=== PATIENT | female | born 1965 | race Caucasian/White ===

== ENCOUNTER → 2017-09-25 14:24 | Outpatient (CLI) | payer OTHER, SELFPAY ==
--- NOTE | 2017-09-25 14:27 | BI_ITS ---
MAMMOGRAPHY - BILATERAL SCREENING REASON FOR EXAM: Female, 52 years old. Routine annual screening examination. PERTINENT HISTORY: FAM HX MOTHER AGE 62, 3 MAT AUNTS AGES ?? NO SX TECHNIQUE: Digital bilateral breast leonor (3D mammographic acquisition) in the CC and MLO projections. 2-D mediolateral oblique (MLO) and craniocaudad (CC) views of both breasts were obtained. CAD: Full Field Digital Mammography with Computer Added Detection was performed. COMPARISON: Sep 19 2016 3:07pm. Sep 09 2015 1:58pm FINDINGS: Breast Composition: The breasts are extremely dense, which lowers the sensitivity of mammography. There are no dominant masses or suspicious calcifications. No other significant abnormalities are identified. BI/SCREENING MAMM (CAD), BILAT IMPRESSION: Stable bilateral screening mammogram. Yearly follow-up mammogram recommended. (A) ASSESSMENT CATEGORY: BIRADS Category 2: Benign. A letter regarding these results will be sent to the patient by the facility within 30 days. Approximately 10% of breast cancers are not detected by mammography. A normal mammogram should not delay biopsy of a clinically suspicious abnormality. [id number] Electronically Signed: Ora Allen MD at 15:46 EDT Tel , Service support ,
== END ==
PROVIDERS: Family Provider Family Medicine; PCP Family Medicine; Visit Provider Family Medicine
DX: Z12.31 Encounter for screening mammogram for malignant neoplasm of breast (principal)
CPT/HCPCS: 77063; 77067

== ENCOUNTER 2018-03-26 11:34 | Day surgery (SDC) | payer OTHER, SELFPAY ==
--- NOTE | 2018-03-26 11:55 | HP.PCM_ITS ---
History and Physical Date of Admission: 03/26/18 HISTORY AND PHYSICAL ? Ginetet Morton 1965 ? REFERRING PHYSICIAN: ??Self ? CHIEF COMPLAINT: ??Consult (Consult Colonoscopy) ? HPI: The patient is a 52 year old female referred for endoscopy. ?Ginette notes no history of colon complaints. ?She denies any change in bowel habits, weight changes, blood in stools, black tarry stools or abdominal pain. ?She denies any family history of colon cancer in a first-degree relative. The patient ?notes no history of upper GI complaints. ??Ginette has partially?undergone prior endoscopy. ? ? Patient's past medical history is significant for migraines. ?She denies any cardiac or respiratory problems, and denies any issues with sedation in the past. ? ? PAST MEDICAL HISTORY PAST MEDICAL HISTORY Diagnosis Date ? Migraines ? PAST SURGICAL HISTORY PAST SURGICAL HISTORY Procedure Laterality Date ? HYSTERECTOMY HX ? 2013 ? with Rt oophorectomy ? ? ? CURRENT MEDICATIONS ? No current outpatient prescriptions on file. No current facility-administered medications for this visit. ? ALLERGIES: Patient has no known allergies. ? PERSONAL HISTORY: SOCIAL HISTORY Social History ??Marital status: ?Spouse name: ?Years of education: ?Number of children: ? Social History Main Topics ??Smoking status: Never Smoker ?Smokeless tobacco: Never Used ?Alcohol use: Yes ?Comment: 1/ year ??Drug use: No ? FAMILY HISTORY: FAMILY HISTORY FAMILY HISTORY Problem Relation Age of Onset ? Breast Cancer Mother ? ? Hypertension Mother ? ? Cancer Maternal Grandmother ?pancreatic vs colon ca ? Coronary Artery Disease Maternal Grandfather ? ? Prostate Cancer Paternal Grandfather ? ? Breast Cancer Maternal Aunt ?x3 ? ? REVIEW OF SYMPTOMS: ??The review of systems data was entered by the nurse and reviewed by me ? There are no exam notes on file for this visit. ? ? PHYSICAL EXAMINATION: ? General: ?The patient is 52 year old female, well nourished, well hydrated in no acute distress. ?The patient is oriented to time, place, and person. ? VITALS: Blood pressure 132/72, pulse 68, height 162.6 cm (5' 4), weight 62.2 kg (137 lb 3.2 oz).?Body mass index is 23.55 kg/m?.? ? HEENT: ?Normal cephalic, ataumatic, pupils are equally round, sclera are anicteric, mucous membranes are moist, oropharynx is clear. ?Neck has no masses, asymmetry or lymphadenopathy. ? ? Respiratory: ?Clear to auscultation and percussion. ?Normal respiratory excursion and pattern. ? Cardiac: ?Examination is regular rate and rhythm. ? Abdominal exam: ?Soft, nontender, ?with no palpable masses. ?No hepatosplenomegaly. ?No palpable hernias. ? Rectal exam: exam deferred ? Extremities: ?no clubbing, cyanosis or edema. ?No adenopathy. ? Other: ? LABORATORY VALUES: As Noted ? RADIOLOGIC STUDIES: ?As Noted ? Assessment ? IMPRESSION: encounter for screening colonoscopy ? PLAN: ?We will plan for screening colonoscopy, patient wishes to have this done at [facility] as she works there and has [facility] insurance. ?We discussed the risks and benefits of the planned endoscopy. ?I have informed the patient that complications can occur including failure to complete the endoscopy and perforation. ?The patient had the opportunity to ask questions concerning the planned endoscopy. ?My staff has also explained the procedure to the patient in understandable terms and has given the patient printed material concerning the procedure. ?The patient freely consents to surgery. ? I plan to use golytely bowel preparation for endoscopy ? Diagnoses: (Z12.11) Encounter for screening for malignant neoplasm of colon ?(primary encounter diagnosis) ? My findings have been communicated to Dr. Meek?via shared medical record. ?This note will be forwarded to Dr. Bhavik Pineda MD. ?? Return to Clinic: The patient is instructed to follow-up with me 1 week post operatively. ? Cristal Barlow PA-C
[2018-03-26 12:10] VITALS: BP 124/75; PULSE 76; RESP 16; TEMP 37.3; O2SAT 100; BMI 23.3
--- NOTE | 2018-03-26 12:53 | OP.ENDO_ITS ---
Patient Name: Ginette Morton Procedure Date: 03/26/2018 12:21 PM Date of : 1965 Age: 52 Procedure: Colonoscopy Indications: Screening for colorectal malignant neoplasm Providers: Edmund Munroe MD Referring MD: Edmund Munroe MD Medicines: Monitored Anesthesia Care Patient Profile: This is a 52 year old female. Refer to note in patient chart for documentation of history and physical. Last Colonoscopy: none. The patient's first colonoscopy is today. Complications: No immediate complications. Procedure: Pre-Anesthesia Assessment: - Prior to the procedure, a History and Physical was performed, and patient medications and allergies were reviewed. The patient is competent. The risks and benefits of the procedure and the sedation options and risks were discussed with the patient. All questions were answered and informed consent was obtained. Patient identification and proposed procedure were verified by the physician, the nurse and the him specialist in the procedure room. Mental Status Examination: alert and oriented. Airway Examination: normal oropharyngeal airway and neck mobility. Respiratory Examination: clear to auscultation. CV Examination: normal. Prophylactic Antibiotics: The patient does not require prophylactic antibiotics. Prior Anticoagulants: The patient has taken no previous anticoagulant or antiplatelet agents. ASA Grade Assessment: II - A patient with mild systemic disease. After reviewing the risks and benefits, the patient was deemed in satisfactory condition to undergo the procedure. The anesthesia plan was to use monitored anesthesia care (MAC). Immediately prior to administration of medications, the patient was re-assessed for adequacy to receive sedatives. The heart rate, respiratory rate, oxygen saturations, blood pressure, adequacy of pulmonary ventilation, and response to care were monitored throughout the procedure. The physical status of the patient was re-assessed after the procedure. After I obtained informed consent, the scope was passed under direct vision. Throughout the procedure, the patient's blood pressure, pulse, and oxygen saturations were monitored continuously. The pediatric colonoscope was introduced through the anus and advanced to the cecum, identified by the appendiceal orifice, ileocecal valve and palpation. The colonoscopy was performed without difficulty. The patient tolerated the procedure well. The quality of the bowel preparation was good. Scope In: 12:38:11 PM Scope Withdrawal Time 0 hours 6 minutes 10 seconds Scope Out: 12:49:57 PM Total Procedure Duration Time 0 hours 11 minutes 46 seconds Findings: The perianal and digital rectal examinations were normal. The entire examined colon appeared normal on direct and retroflexion views. Impression: - The entire examined colon is normal on direct and retroflexion views. - No specimens collected. Recommendation: - Discharge patient to home. - Resume previous diet. - Continue present medications. - Repeat colonoscopy in 10 years for screening purposes. Edmund Munroe MD 03/26/2018 12:53:13 PM This report has been signed electronically. Number of Addenda: 0 Note Initiated On: 03/26/2018 12:21 PM
[2018-03-26 12:55] VITALS: BP 124/75; BP 95/53; PULSE 80; RESP 16; TEMP 36.6; O2SAT 97
[2018-03-26 13:00] VITALS: BP 100/60; BP 124/75; PULSE 71; RESP 16; O2SAT 100
[2018-03-26 13:01] VITALS: BP 107/61; BP 124/75; PULSE 73; RESP 16; O2SAT 100
[2018-03-26 13:11] VITALS: BP 111/65; BP 124/75; PULSE 68; RESP 18; TEMP 36.9; O2SAT 100
[2018-03-26 13:23] VITALS: BP 124/75
== END 2018-03-26 13:31 | disposition home or self-care (01) ==
LOC: EN 11:35 → AC 11:35
PROVIDERS: Family Provider Family Medicine; PCP Family Medicine; Referring Provider Surgery; Visit Provider Surgery
PROC: 0DJD8ZZ Inspection of Lower Intestinal Tract, Via Natural or Artificial Opening Endoscopic (ICD-10-PCS; CPT 45378; principal; 2018-03-26 12:25)
DX: Z12.11 Encounter for screening for malignant neoplasm of colon (principal)
CPT/HCPCS: 45378; J7120

== ENCOUNTER → 2018-06-13 14:23 | Outpatient (CLI) | payer OTHER, SELFPAY ==
[2018-06-16 11:14] LABS: HPV Reflexed? NOT INDICATED
--- OUTSIDE RECORDS SUMMARY | 2018-08-18 11:48 | XMS RPT_ITS ---
:1965 Author Organization [facility] Care Team Providers Name Role Phone LEO BARLOW (CARMELITA) Attending Unavailable Emilie Fagan Attending Unavailable Oriana Savage Attending Unavailable Hussein Oriana Referring Unavailable Hussein Oriana Primary Care Unavailable ASSESSMENT, HEALTH RISK Attending Unavailable ASSESSMENT, HEALTH RISK Referring Unavailable Malys, Oriana Primary Care Unavailable Edmund Escobar Attending Unavailable Edmund Escobar Referring Unavailable Oriana Savage Primary Care Unavailable PROBLEMS PROBLEMS DATE TYPE CONDITION / CODE ATTENDING STATUS SOURCE 06/13/2018 Unknown Z12.4 - Emilie Fagan Active [place] Encounter for Community screening for Hospital malignant Repository neoplasm of cervix / Z12.4(ICD-10) 09/25/2017 Unknown Z12.31 - Oriana Savage Active [place] Encounter for Community screening Hospital mammogram for Repository malignant neoplasm of breast / Z12.31(ICD-10) PROCEDURES PROCEDURES No Procedure Records FoundRESULTS RESULTS PAP I-G W/RFX HRHPV Collected: 06/13/2018 Status: F Source: [place] 11:30 AM [facility] REPOSITORY Order Comment: CYTOLOGY INFORMATION: - CLINICAL INFORMATION: HYSTERECTOMY - DATE LMP/MENOPAUSE: - COLLECTION VIAL: Thin Prep Vial - ENVIRONMENTAL FIELD TEAM MEMBER SOURCE: VAGINAL - COLLECTION TECHNIQUE: BRUSH/SPATULA Specimen Comment: [id number] Specimen Comment: Source.............Vagina Specimen Comment: LMP / Prev Treat...Hyst Specimen Comment: No. of containers..01 ThinPrep Vial TYPE CODE TESTS RESULT OUT OF RANGE REFERENCE UNITS LAB L7400.0800 . Normal DIAGN Comment Result Comment: NEGATIVE FOR INTRAEPITHELIAL LESION OR MALIGNANCY. LAB L7400.0900 . Normal ADEQ Comment Result Comment: Satisfactory for evaluation. No endocervical cells are present. This is consistent with a history of hysterectomy. LAB L7400.1400 . Normal PERFORM Comment Result Comment: Tatianna Boss, Hospice Care Transitions Coordinator (ASCP) LAB L7400.2575 . Normal TEST METHOD Comment Result Comment: This liquid based ThinPrep(R) pap test was screened with the use of an image guided system. LAB L7400.2600 . Normal . COMM LAB L7400.2700 . Normal PAPSMR Comment Result Comment: The Pap smear is a screening test designed to aid in the detection of premalignant and malignant conditions of the uterine cervix. It is not a diagnostic procedure and should not be used as the sole means of detecting cervical cancer. Both false-positive and false-negative reports do occur. LAB L7400.2800 . Normal HPV RFLX Comment Result Comment: The HPV DNA reflex criteria were not met with this specimen result therefore, no HPV testing was performed. Performed at: [facility] [address]David douglas [address] [id number] Sanitation Inspector: Maria Eugenia Victor MD, Phone: [phone] Performed By: #### L7400.0350 #### [facility] (refer to report for specific site) refer to report for address and phone number PROGRESS Observed: 04/01/2018 Status: COMPLETED Source: [place] 12:51 PM [facility] REPOSITORY HNO ID: [id number] Author: Edmund Escobar Service: (none) Author Type: Physician Type: Progress Notes Filed: 04/01/2018 12:54 PM Note Text: OPERATIVE NOTATION FOR [facility] SURGICAL PROCEDURE. March 26, 2018 Ginette Morton 1965 [id number] female PROCEDURE: COLONOSCOPY - [id number] SURGEON: Anil Escobar M.D. FACS FINANCIAL RETIREMENT PLAN SPECIALIST: None DEPT: PROVIDER: [id number] Escobar MD POS: [id number] DIAGNOSIS: (Z12.11) Special screening for malignant neoplasms, colon (primary encounter diagnosis) ASA CLASS: 2 - mild FINDINGS: COMPLICATIONS: None PMHx - PAST MEDICAL HISTORY Diagnosis Date - Migraines COMORBIDITIES - None Post Op Occurrences - None Wound Classification - Clean Contaminated Operative note dictated in the [facility] dictation system. Edmund Escobar MD OPERATIVE REPORT - Observed: 03/26/2018 Status: F Source: [facility] 12:53 PM [facility] REPOSITORY [facility] Medical Records Department [address] [place] [address] Operative Report - Endoscopy MR#: [id number] Acct: [id number] Name: GINETTE MORTON Rep #: [id number] : 1965 52 From: Edmund Escobar MD PCP: Oriana Savage DO Status: [employer] Patient Name: Ginette Morton Procedure Date: 03/26/2018 12:21 PM Date of : 1965 Age: 52 Procedure: Colonoscopy Indications: Screening for colorectal malignant neoplasm Providers: Edmund Escobar MD Referring MD: Edmund Escobar MD Medicines: Monitored Anesthesia Care Patient Profile: This is a 52 year old female. Refer to note in patient chart for documentation of history and physical. Last Colonoscopy: none. The patient's first colonoscopy is today. Complications: No immediate complications. Procedure: Pre-Anesthesia Assessment: - Prior to the procedure, a History and Physical was performed, and patient medications and allergies were reviewed. The patient is competent. The risks and benefits of the procedure and the sedation options and risks were discussed with the patient. All questions were answered and informed consent was obtained. Patient identification and proposed procedure were verified by the physician, the nurse and the education administrative assistant in the procedure room. Mental Status Examination: alert and oriented. Airway Examination: normal oropharyngeal airway and neck mobility. Respiratory Examination: clear to auscultation. CV Examination: normal. Prophylactic Antibiotics: The patient does not require prophylactic antibiotics. Prior Anticoagulants: The patient has taken no previous anticoagulant or antiplatelet agents. ASA Grade Assessment: II - A patient with mild systemic disease. After reviewing the risks and benefits, the patient was deemed in satisfactory condition to undergo the procedure. The anesthesia plan was to use monitored anesthesia care (MAC). Immediately prior to administration of medications, the patient was re-assessed for adequacy to receive sedatives. The heart rate, respiratory rate, oxygen saturations, blood pressure, adequacy of pulmonary ventilation, and response to care were monitored throughout the procedure. The physical status of the patient was re-assessed after the procedure. After I obtained informed consent, the scope was passed under direct vision. Throughout the procedure, the patient's blood pressure, pulse, and oxygen saturations were monitored continuously. The pediatric colonoscope was introduced through the anus and advanced to the cecum, identified by the appendiceal orifice, ileocecal valve and palpation. The colonoscopy was performed without difficulty. The patient tolerated the procedure well. The quality of the bowel preparation was good. Scope In: 12:38:11 PM Scope Withdrawal Time 0 hours 6 minutes 10 seconds Scope Out: 12:49:57 PM Total Procedure Duration Time 0 hours 11 minutes 46 seconds Findings: The perianal and digital rectal examinations were normal. The entire examined colon appeared normal on direct and retroflexion views. Impression: - The entire examined colon is normal on direct and retroflexion views. - No specimens collected. Recommendation: - Discharge patient to home. - Resume previous diet. - Continue present medications. - Repeat colonoscopy in 10 years for screening purposes. Edmund Escobar MD 03/26/2018 12:53:13 PM This report has been signed electronically. Number of Addenda: 0 Note Initiated On: 03/26/2018 12:21 PM 03/26/18 1253 Date Edmund Escobar MD Cosigner Signature: Date (if indicated) CC: Oriana Savage DO; Edmund Escobar MD Date Dictated: 03/26/18 1221 Date Transcribed: Technical Support 1 Software Engineer: [email or web address] Signed HISTORY AND PHYSICAL Observed: 03/26/2018 Status: F Source: [facility] EXAM 11:55 AM [facility] REPOSITORY [facility] Medical Records Department [address] [place] [address] History and Physical 03/26/18 1154 MR#: [id number] Acct: [id number] Name: GINETTE MORTON Rep #: [id number] : 1965 52 From: Edmund Escobar MD PCP: Oriana Savage DO Status: [employer] Y Location: [place] [address] History and Physical Date of Admission: 03/26/18 HISTORY AND PHYSICAL Ginette Morton 1965 REFERRING PHYSICIAN: Self CHIEF COMPLAINT: Consult (Consult Colonoscopy) HPI: The patient is a 52 year old female referred for endos copy. Ginette notes no history of colon complaints. She denies any change in bowel habits, weight changes, blood in stools, black tarry stools or abdominal pain. She denies any family h istory of colon cancer in a first-degree relative. The patient notes no history of upper GI co mplaints. Ginette has partially undergone prior endoscopy. Patient's past medical histo ry is significant for migraines. She denies any cardiac or respiratory problems, and denies an y issues with sedation in the past. PAST MEDICAL HISTORY PAST MEDICAL HISTORY Diagnos is Date Migraines PAST SURGICAL HISTORY PAST SURGICAL HISTORY Procedure Lat erality Date HYSTERECTOMY HX 2013 with Rt oophorectomy CURRENT MEDICATIONS No current outpatient prescriptions on file. Nocurrent facility- administered medications for t his visit. ALLERGIES: Patient has no known allergies. PERSONAL HISTORY: SOCIAL HISTORY Social History Marital status: Spouse name: Years o f education: Number of children: Social History Main Topics Smok ing status: Never SmokerSmokeless tobacco: Never Used Alcohol use: Yes Comment: 1/ year Drug use: No FAMILY HISTORY: FAMILY HISTORY FAMILY HISTORY Problem Relation Age of Onset Breast Cancer Mother Hypertension Moth er Cancer Maternal Grandmother pancreatic vs colon ca Coronary Artery Disease Maternal GrandfatherProstate Cancer Paternal Grandfather Breast Cancer Maternal Aunt x3 REVIEW OF SYMPTOMS: The review of systems data was entered by the nurse and rev iewed by me There are no exam notes on file for this visit. PHYSICAL EXAMINATION: Gener al: The patient is 52 year old female, well nourished, well hydrated in no acute distress. Th e patient is oriented to time, place,and person. VITALS: Blood pressure 132/72, pulse 68, hei ght 162.6 cm (5' 4), weight 62.2 kg (137 lb 3.2 oz). Body mass index is 23.55 kg/m . HEENT: Normal cephalic, ataumatic, pupils are equally round, sclera are anicteric, mucous membranes are moist, oropharynx is clear. Neck has no masses, asymmetry or lymphadenopathy. Respirat ory: Clear to auscultation and percussion. Normal respiratory excursion and pattern. Cardia c: Examination is regular rate and rhythm. Abdominal exam: Soft, nontender, with no palpab le masses. No hepatosplenomegaly. No palpable hernias. Rectal exam: exam deferred Extremi ties: no clubbing, cyanosis or edema. No adenopathy. Other: LABORATORY VALUES: As Noted RADIOLOGIC STUDIES: As Noted Assessment IMPRESSION: encounter for screening colonoscopy PLAN: We will plan for screening colonoscopy, patient wishes to have this done at [facility] as she works there and has [facility] insurance. We discussed the risks andbenefits of the planned endoscopy. I have informed the patient that complications can occur including failure to complete the endoscopy and perforation. The patient had the opportunity to ask ques tions concerning the planned endoscopy. My staff has also explained the procedure to the patie nt in understandable terms and has given the patient printed material concerning the procedure. The patient freely consents to surgery. I plan to use golytely bowel preparation for endos copy Diagnoses: (Z12.11) Encounter for screening for malignant neoplasm of colon (primary en counter diagnosis)My findings have been communicated to Dr. Meek via shared medical record. Th is note will be forwarded to Dr. Bhavik Pineda MD. Return to Clinic: The patient is instr ucted to follow-up with me 1week post operatively. Leo Barlow PA-C 03/26/18 1155 <Electronically signed by Edmund Escobar MD> Date Edmund Escobar MD Cosigner Signature: Date (if applicable) CC: Oriana Savage DO; Edmund Escobar MD Signed CNOP Observed: 03/26/2018 Status: COMPLETED Source: [place] 12:00 AM [facility] REPOSITORY Operative Note (Enc) (GENSWS) Progress Notes: Edmund Escobar MD 04/01/2018 12:54 PM Signed OPERATIVE NOTATION FOR [facility] SURGICAL PROCEDURE. March 26, 2018 Ginette Davideric 1965 [id number] female PROCEDURE: COLONOSCOPY - [id number] SURGEON: Anil Escobar M.D. FACS FINANCIAL RETIREMENT PLAN SPECIALIST: None DEPT: WQ PROVIDER: [id number] Escobar MD POS: [id number] DIAGNOSIS: (Z12.11) Special screening for malignant neoplasms, colon (primary encounter diagnosis) ASA CLASS: 2 - mild FINDINGS: COMPLICATIONS: None PMHx - PAST MEDICAL HISTORY Diagnosis Date - Migraines COMORBIDITIES - None Post Op Occurrences - None Wound Classification - Clean Contaminated Operative note dictated in the [facility] dictation system. Edmund Escobar MD Encounter Status:Closed by EDMUND ESCOBAR MD on 04/01/18 PROGRESS Observed: 01/18/2018 Status: COMPLETED Source: [place] 1:37 PM [facility] REPOSITORY HNO ID: [id number] Author: Leo Barlow (Pa) Service: (none) Author Type: Physician Chef Assistant Type: Progress Notes Filed: 01/23/2018 3:28 PM Note Text: HISTORY AND PHYSICAL Ginette Morton 1965 REFERRING PHYSICIAN: Self CHIEF COMPLAINT: Consult (Consult Colonoscopy) HPI: The patient is a 52 year old female referred for endoscopy. Ginette notes no history of colon complaints. She denies any change in bowel habits, weight changes, blood in stools, black tarry stools or abdominal pain. She denies any family history of colon cancer in a first-degree relative. The patient notes no history of upper GI complaints. Ginette has partially undergone prior endoscopy. Patient's past medical history is significant for migraines. She denies any cardiac or respiratory problems, and denies any issues with sedation in the past. PAST MEDICAL HISTORY Diagnosis Date - Migraines PAST SURGICAL HISTORY Procedure Laterality Date - HYSTERECTOMY 2013 with Rt oophorectomy No current outpatient prescriptions on file. No current facility-administered medications for this visit. ALLERGIES: Patient has no known allergies. PERSONAL HISTORY: Social History Marital status: Spouse name: Years of education: Number of children: Social History Main Topics Smoking status: Never Smoker Smokeless tobacco: Never Used Alcohol use: Yes Comment: 1/ year Drug use: No FAMILY HISTORY: FAMILY HISTORY Problem Relation Age of Onset - Breast Cancer Mother - Hypertension Mother - Cancer Maternal Grandmother pancreatic vs colon ca - Coronary Artery Disease Maternal Grandfather - Prostate Cancer Paternal Grandfather - Breast Cancer Maternal Aunt x3 REVIEW OF SYMPTOMS: The review of systems data was entered by the nurse and reviewed by me There are no exam notes on file for this visit. PHYSICAL EXAMINATION: General: The patient is 52 year old female, well nourished, well hydrated in no acute distress. The patient is oriented to time, place, and person. VITALS: Blood pressure 132/72, pulse 68, height 162.6 cm (5' 4), weight 62.2 kg (137 lb 3.2 oz). Body mass index is 23.55 kg/m?. HEENT: Normal cephalic, ataumatic, pupils are equally round, sclera are anicteric, mucous membranes are moist, oropharynx is clear. Neck has no masses, asymmetry or lymphadenopathy. Respiratory: Clear to auscultation and percussion. Normal respiratory excursion and pattern. Cardiac: Examination is regular rate and rhythm. Abdominal exam: Soft, nontender, with no palpable masses. No hepatosplenomegaly. No palpable hernias. Rectal exam: exam deferred Extremities: no clubbing, cyanosis or edema. No adenopathy. Other: LABORATORY VALUES: As Noted RADIOLOGIC STUDIES: As Noted Assessment IMPRESSION: encounter for screening colonoscopy PLAN: We will plan for screening colonoscopy, patient wishes to have this done at [facility] as she works there and has [facility] insurance. We discussed the risks and benefits of the planned endoscopy. I have informed the patient that complications can occur including failure to complete the endoscopy and perforation. The patient had the opportunity to ask questions concerning the planned endoscopy. My staff has also explained the procedure to the patient in understandable terms and has given the patient printed material concerning the procedure. The patient freely consents to surgery. I plan to use golytely bowel preparation for endoscopy Diagnoses: (Z12.11) Encounter for screening for malignant neoplasm of colon (primary encounter diagnosis) My findings have been communicated to Dr. Meek via shared medical record. This note will be forwarded to Dr. Bhavik Pineda MD. Return to Clinic: The patient is instructed to follow-up with me 1 week post operatively. VAIBHAV Velazquez Observed: 01/18/2018 Status: COMPLETED Source: [place] 1:30 PM [facility] REPOSITORY Office Visit (GENSWS) DAVIDGINETTE Humphries ([id number]) 1965 F Date Time Provider Department 01/18/18 1:30 PM LEO BARLOW (PA) During your visit today, we recorded the following information about you: Pulse Blood pressure Weight Height 68/minute 132/72 62.2 kg 1.626 m Leo Barlow PA-C 01/23/2018 3:28 PM Signed HISTORY AND PHYSICAL Ginette Morton 1965 REFERRING PHYSICIAN: Self CHIEF COMPLAINT: Consult (Consult Colonoscopy) HPI: The patient is a 52 year old female referred for endoscopy. Ginette notes no history of colon complaints. She denies any change in bowel habits, weight changes, blood in stools, black tarry stools or abdominal pain. She denies any family history of colon cancer in a first-degree relative. The patient notes no history of upper GI complaints. Ginette has partially undergone prior endoscopy. Patient's past medical history is significant for migraines. She denies any cardiac or respiratory problems, and denies any issues with sedation in the past. PAST MEDICAL HISTORY Diagnosis Date - Migraines PAST SURGICAL HISTORY Procedure Laterality Date - HYSTERECTOMY 2013 with Rt oophorectomy No current outpatient prescriptions on file. No current facility-administered medications for this visit. ALLERGIES: Patient has no known allergies. PERSONAL HISTORY: Social History Marital status: Spouse name: Years of education: Number of children: Social History Main Topics Smoking status: Never Smoker Smokeless tobacco: Never Used Alcohol use: Yes Comment: 1/ year Drug use: No FAMILY HISTORY: FAMILY HISTORY Problem Relation Age of Onset - Breast Cancer Mother - Hypertension Mother - Cancer Maternal Grandmother pancreatic vs colon ca - Coronary Artery Disease Maternal Grandfather - Prostate Cancer Paternal Grandfather - Breast Cancer Maternal Aunt x3 REVIEW OF SYMPTOMS: The review of systems data was entered by the nurse and reviewed by me There are no exam notes on file for this visit. PHYSICAL EXAMINATION: General: The patient is 52 year old female, well nourished, well hydrated in no acute distress. The patient is oriented to time, place, and person. VITALS: Blood pressure 132/72, pulse 68, height 162.6 cm (5' 4), weight 62.2 kg (137 lb 3.2 oz). Body mass index is 23.55 kg/m?. HEENT: Normal cephalic, ataumatic, pupils are equally round, sclera are anicteric, mucous membranes are moist, oropharynx is clear. Neck has no masses, asymmetry or lymphadenopathy. Respiratory: Clear to auscultation and percussion. Normal respiratory excursion and pattern. Cardiac: Examination is regular rate and rhythm. Abdominal exam: Soft, nontender, with no palpable masses. No hepatosplenomegaly. No palpable hernias. Rectal exam: exam deferred Extremities: no clubbing, cyanosis or edema. No adenopathy. Other: LABORATORY VALUES: As Noted RADIOLOGIC STUDIES: As Noted Assessment IMPRESSION: encounter for screening colonoscopy PLAN: We will plan for screening colonoscopy, patient wishes to have this done at [facility] as she works there and has [facility] insurance. We discussed the risks and benefits of the planned endoscopy. I have informed the patient that complications can occur including failure to complete the endoscopy and perforation. The patient had the opportunity to ask questions concerning the planned endoscopy. My staff has also explained the procedure to the patient in understandable terms and has given the patient printed material concerning the procedure. The patient freely consents to surgery. I plan to use golytely bowel preparation for endoscopy Diagnoses: (Z12.11) Encounter for screening for malignant neoplasm of colon (primary encounter diagnosis) My findings have been communicated to Dr. Meek via shared medical record. This note will be forwarded to Dr. Bhavik Pineda MD. Return to Clinic: The patient is instructed to follow-up with me 1 week post operatively. Leo Barlow PA-C Referring Provider: SUNITA [200] Allergies As of Date: 01/18/2018 (No Known Allergies) Date Reviewed: 01/18/2018 Reviewed by: Leo Barlow (Pa) - Fully Assessed Reason for Visit: Consult [173] Cmt: Consult Colonoscopy Primary Visit Diagnosis:Encounter for screening for malignant neoplasm of colon [Z12.11] Problem List As Of Date: 01/18/2018 (None) Follow-up and Disposition History Recorded Encounter Status:Closed by LEO BARLOW PA-C on 01/23/18 URINALYSIS, EMPLOYEE Collected: 12/15/2017 Status: F Source: [place] 3:03 PM [facility] REPOSITORY TYPE CODE TESTS RESULT OUT OF RANGE REFERENCE UNITS LAB L400.3000 Yellow COLOR Normal Yellow LAB L400.3050 Clear Normal CLARITY Clear LAB L400.3200 Normal mg/dl Normal GLUCOSE, UR Normal LAB L400.3300 Negative mg/dL Normal BILIRUBIN URINE Negative LAB L400.3400 Negative mg/dl Normal KETONE UR Negative LAB L400.3465 1.002-1.030 Normal SP.GR. DIPSTX 1.010 LAB L400.3550 5.0 - 8.0 pH UR Normal 8.0 LAB L400.3600 Negative mg/dl PROT Normal DIPSTX Negative LAB L400.3700 Normal mg/dl Normal UROBILI Normal LAB L400.3750 Negative Normal NITRITE UR Negative LAB L400.3780 Negative /ul High 25 OCCULT BLOOD-UR LAB L400.3800 Negative /ul LEUK Normal ESTERASE Negative Performed By: #### L400.0100 #### [facility] [address] [place], [address] EMPLOYEE PROFILE Collected: 12/15/2017 Status: F Source: [facility] 3:03 PM [facility] REPOSITORY TYPE CODE TESTS RESULT OUT OF RANGE REFERENCE UNITS LAB L501.0100 74-106 mg/dL Normal GLU 80 Result Comment: Please note revised GLUCOSE reference range effective 2017. LAB L501.1000 7-18 mg/dL Normal BUN 13 LAB L501.1100 0.55-1.02 mg/dL Normal CREAT,SERUM 0.72 Result Comment: The validity of the calculated GFR AND GFRAA in patients over 70 years has not been determined. Clinical correlation is essential. LAB L501.1110 >60 mL/min Normal EST GFR 89 Result Comment: Non- GFR Calc LAB L501.1115 >60 mL/min Normal EST GFR - AA 108 Result Comment: GFR Calc LAB L501.1300 10-20 RATIO Normal BUN/CRE 17.9 LAB L501.1400 2.6-6.0 mg/dL Normal URIC 3.4 Result Comment: The drugs N-Acetylcysteine and Metamizole may falsely depress this assay. LAB L501.1500 6.4-8.2 g/dL Normal T PROT 7.0 LAB L501.1800 3.2-5.0 g/dL Normal ALB 3.7 LAB L501.1950 2.2-4.2 g/dL Normal GLOB 3.3 LAB L501.2000 0.9-2.4 RATIO Normal A/G 1.1 LAB L501.2200 8.5-10.1 mg/dL Normal CA 8.8 LAB L501.2300 2.5-4.9 mg/dL Normal PHOS 3.3 LAB L501.4100 15-37 U/L Normal AST 23 LAB L501.4305 45-117 U/L Normal ALK P 81 LAB L501.4405 13-56 U/L Normal ALT 23 LAB L501.4600 0.20-1.00 mg/dL Normal T BILI 0.50 LAB L501.4700 0.00-0.30 mg/dL Normal D BILI 0.14 LAB L501.4900 200 mg/dL Normal CHOL 186 Result Comment: <200 mg/dL Desirable 200-240 mg/dL Borderline >240 mg/dL High Risk LAB L501.5000 mg/dL Normal TRIG 52 Result Comment: The drugs N-Acetylcysteine and Metamizole may falsely depress this assay. Serum Triglycerides Reference Interval Normal <150 mg/dL Borderline high 150 - 199 mg/dL High 200 - 499 mg/dL Very High > or = 500 mg/dL LAB L501.5300 136-145 mmol/L Normal NA 141 LAB L501.5600 3.5-5.1 mmol/L Normal K 4.2 LAB L501.5900 98-107 mmol/L High CL 108 LAB L501.6100 21.0-32.0 mmol/L Normal CO2 27.0 LAB L501.6200 5-15 Normal 6 GAP LAB L501.6400 mg/dL Normal HDL 80 Result Comment: The drugs N-Acetylcysteine and Metamizole may falsely depress this assay. Reference Range HDL <40 mg/dL Low HDL Cholesterol HDL >or= 60 mg/dL High HDL Cholesterol LAB L501.6475 Normal CHOL:HDL 2.30 LAB L501.6500 0-130 mg/dL Normal LDL 96 LAB L501.6600 5-40 mg/dL Normal VLDL 10 LAB L504.2610 84-246 U/L Normal LDH 163 Performed By: #### L500.2900 #### [facility] [address] [place], [place], [address] CBC, EMPLOYEE Collected: 12/15/2017 Status: F Source: [place] 3:03 PM [facility] REPOSITORY TYPE CODE TESTS RESULT OUT OF RANGE REFERENCE UNITS LAB L100.1000 4.4-11.0 K/mm3 Normal WBC 4.8 LAB L100.1200 4.2-5.4 M/mm3 Normal RBC 4.38 LAB L100.1300 12.0-15.0 g/dl Normal HGB 12.6 LAB L100.1400 37-47 % Normal HCT 37.9 LAB L100.1500 81-99 fL Normal MCV 86.5 LAB L100.1600 27.0-32.0 pg Normal MCH 28.8 LAB L100.1700 32-36 g/gl Normal MCHC 33.2 LAB L100.1810 11.6-14.6 % Normal RDW CV 12.5 LAB L100.1820 35.1-43.9 fl Normal RDW SD 39.2 LAB L100.1900 150-450 K/mm3 Normal PLT 215 LAB L100.2000 6.2-12.0 fl Normal MPV 9.4 LAB L100.2110 47-70 % Normal NEUT% 58.1 LAB L100.2210 19-41 % Normal LY% 32.1 LAB L100.2310 0-10 % Normal MONO% 7.5 LAB L100.2410 0-5 % Normal EO% 1.7 LAB L100.2510 0-1 % Normal BASO% 0.4 LAB L100.2620 2.0-7.7 X10 3/uL Normal Absolute Neut 2.8 LAB L100.2720 0.83-4.51 X10 3/ul Normal Absolute Lymph 1.55 Performed By: #### L100.0200 #### [facility] [address] [place], [address] NICOTINE URINE DRUG Collected: 12/15/2017 Status: F Source: [place]IA SCREEN 3:03 PM [facility] REPOSITORY TYPE CODE TESTS RESULT OUT OF RANGE REFERENCE UNITS LAB L505.6250 TO BE Normal CONFIRMED Result Comment: CONFIRMATORY TESTING FOR ALL POSITIVE URINE DRUG SCREEN RESULTS WILL ONLY BE SENT OUT UPON PHYSICIAN ORDER. The results of Urine Drug Screen methods provide only preliminary analytical test results. A more specific alternate chemical method must be used in order to obtain a confirmed analytical result. Gas chromatography/mass spectrometery (GC/MS) is the preferred confirmatory method. Clinical consideration and professional judgement should be applied to any drug of abuse test result, particularly when preliminary positive results are used. LAB L505.6270 <200 ng/mL Normal COT DRG Negative SCREEN Result Comment: Cotinine is the first-stage metabolite of Nicotine. Performed By: #### L505.6240 #### [facility] [address] [place], [address] SCREENING MAMM (CAD), Observed: 09/25/2017 Status: F Source: [facility] 2:29 PM [facility] REPOSITORY [facility] Imaging Services [address] [place] [address] SCREENING MAMM (CAD), [facility] MR#: [id number] Acct: [id number] Name: GINETTE MORTON Rep #: [id number] : 1965 F 52 From: Ora Allen MD PCP: Oriana Savage DO Status: [facility] Study: SCREENING MAMM (CAD), BIL Date of Exam: 09/25/17 Exam# [id number] Ordering Dr: Oriana Savage DO MAMMOGRAPHY - BILATERAL SCREENING REASON FOR EXAM: Female, 52 years old. Routine annual screening examination. PERTINENT HISTORY: FAM HX MOTHER AGE 62, 3 MAT AUNTS AGES ?? NO SX TECHNIQUE: Digital bilateral breast leonor (3D mammographic acquisition) in the CC and MLO projections. 2-D mediolateral oblique (MLO) and craniocaudad (CC) views of both breasts were obtained. CAD: Full Field Digital Mammography with Computer Added Detection was performed. COMPARISON: Sep 19 2016 3:07pm. Sep 09 2015 1:58pm FINDINGS: Breast Composition: The breasts are extremely dense, which lowers the sensitivity of mammography. There are no dominant masses or suspicious calcifications. No other significant abnormalities are identified. BI/SCREENING MAMM (CAD), BILAT IMPRESSION: Stable bilateral screening mammogram. Yearly follow-up mammogram recommended. (A) ASSESSMENT CATEGORY: BIRADS Category 2: Benign. A letter regarding these results will be sent to the patient by the facility within 30 days. Approximately 10% of breast cancers are not detected by mammography. A normal mammogram should not delay biopsy of a clinically suspicious abnormality. [id number] Electronically Signed: Ora Allen MD at 15:46 EDT Tel , Service support , CC: Oriana Savage DO Technical Support 1 Software Engineer: Signed ALLERGIES ALLERGIES DATE TYPE / CODE NAME / CODE REACTION SEVERITY SOURCE 03/22/2018 Drug No Known Unknown [facility] Allergy/4160 Allergies/F00 Hospital [address](SNOMED [id number](RXNOR Repository CT) M) ENCOUNTERS ENCOUNTERS ADMIT/DISCHARGE ACCOUNT ADMITTING ENCOUNTER LOCATION SOURCE NUMBER CLASS 06/13/2018 [id number] [facility] ing:LABSPEC Repository 03/26/2018/03/26/[id number] ing:ENRoom: Repository 12 01/18/2018/01/24/20 [id number] Ambulatory [address] Repository 12/15/2017 [id number] [facility] ing:EMPH Repository 09/25/2017 [id number] [facility] ing:OPBI Repository PAYERS PAYERS ENCOUNTER GUARANTOR PAYER SUBSCRIBER SOURCE 06/13/2018 GINETTE Odom Primary Insurance:[facility] GINETTE Odom [place] [id number] [facility] FINKDOB: [place] [address], [place] Number: Repository [id number]: 330 [id number] [phone] (HP) Date:[id number] [address], [place] [address]HX: CHECK WEBSITE 06/13/2018 Secondary NOT GIVENUNK [place] Insurance:SELF PAY [facility] Number: Effective Repository Date:2018-06-13 03/26/2018 GINETTE Odom Primary Insurance:[facility] GINETTE Odom [place] [id number] [facility] [address] FINKDOB: [facility] [id number] Number: Repository [id number]: 330 [id number] [phone] (HP) Date:[id number] [address] [address], [place] [address]WG: CHECK WEBSITE 03/26/2018 Secondary NOT GIVENUNK [place]lia Insurance:SELF PAY [facility] Number: Effective Repository Date:2018-01-19 12/15/2017 Ginette Odom Primary NOT GIVENUNK [place] [id number] Insurance:SELF PAY [place], [place] Number: Effective Repository [id number]: 330) Date:2017-12-15 [phone] (HP) 09/25/2017 Ginette Odom Primary Insurance:[facility] Ginette Odom [place] [id number] [facility] [address] FinkDOB: [facility] [id number] Number: Repository [id number]: 330 [id number] [phone] (HP) Date:4180-19-92WZ [address] [address], [place] [address]GU: CHECK WEBSITE 09/25/2017 Secondary NOT GIVENUNK [place] Insurance:SELF PAY [facility] Number: Effective Repository Date:2017-08-16
== END ==
PROVIDERS: Visit Provider Obstetrics & Gynecology
DX: Z12.4 Encounter for screening for malignant neoplasm of cervix (principal)
CPT/HCPCS: 88175; G0145

== ENCOUNTER → 2018-10-02 | Outpatient (CLI) | payer OTHER, SELFPAY ==
--- NOTE | 2018-10-02 14:39 | BI_ITS ---
MAMMOGRAPHY - BILATERAL SCREENING REASON FOR EXAM: Female, 53 years old. Routine annual screening examination. PERTINENT HISTORY: Mother with breast cancer. Aunts with breast cancer. TECHNIQUE: Digital bilateral breast leonor (3D mammographic acquisition) in the CC and MLO projections. 2-D mediolateral oblique (MLO) and craniocaudad (CC) views of both breasts were obtained. CAD: Full Field Digital Mammography with Computer Added Detection was performed. COMPARISON: Comparison is made with prior examination dated September 25, 2017 and September 19, 2016. FINDINGS: Breast Composition: The breasts are extremely dense, which lowers the sensitivity of mammography. There are no dominant masses or suspicious calcifications. No other significant abnormalities are identified. There has been no significant change since the prior study. BI/SCREENING MAMM (CAD), BILAT IMPRESSION: Stable bilateral screening mammogram. Yearly follow-up mammogram recommended. (A) ASSESSMENT CATEGORY: BIRADS Category 1: Negative. A letter regarding these results will be sent to the patient by the facility within 30 days. Approximately 10% of breast cancers are not detected by mammography. A normal mammogram should not delay biopsy of a clinically suspicious abnormality. [id number] Electronically Signed: Jamal Wakefield, at 16:09 EDT , Service support ,
== END | disposition home or self-care (01) ==
PROVIDERS: Family Provider Family Medicine; PCP Family Medicine; Referring Provider Obstetrics & Gynecology; Visit Provider Obstetrics & Gynecology
DX: Z12.31 Encounter for screening mammogram for malignant neoplasm of breast (principal)
CPT/HCPCS: 77063; 77067

== ENCOUNTER → 2019-04-01 | Outpatient (CLI) | payer OTHER, SELFPAY ==
--- NOTE | 2019-04-01 07:10 | RAD_ITS ---
STUDY: X-RAY - RIGHT HAND, ATTENTION FIFTH FINGER REASON FOR EXAM: Female, 53 years old. Pain and swelling at the proximal interphalangeal joint. Injury occurred 2 months ago. TECHNIQUE: 3 view(s) of the finger were obtained. COMPARISON: None. FINDINGS: Normal metacarpal head. Normal metacarpophalangeal joint. Normal proximal phalanx. Nondisplaced avulsion fracture at the base of the middle phalanx of the fifth digit along its volar aspect. Normal distal phalanx. Normal proximal interphalangeal joint. Normal distal interphalangeal joint. Soft tissue swelling. RAD/Finger(s) Min 2 Views IMPRESSION: Nondisplaced avulsion fracture at the base of the middle pharynx of the fifth digit along its volar aspect. Soft tissue swelling. Electronically Signed: Jamal Wakefield, at 9:48 EST , Service support ,
== END | disposition home or self-care (01) ==
PROVIDERS: Family Provider Family Medicine; PCP Family Medicine; Visit Provider Emergency Medicine
DX: M79.644 Pain in right finger(s) (principal); S69.91XA Unspecified injury of right wrist, hand and finger(s), initial encounter
CPT/HCPCS: 73140

== ENCOUNTER → 2019-10-10 | Outpatient (CLI) | payer OTHER, SELFPAY ==
--- NOTE | 2019-10-10 12:56 | BI_ITS ---
MAMMOGRAPHY - BILATERAL SCREENING REASON FOR EXAM: Female, 54 years old. Routine annual screening examination. PERTINENT HISTORY: Mother with breast cancer. Aunts with breast cancer. TECHNIQUE: Digital bilateral breast jett (3D mammographic acquisition) in the CC and MLO projections. 2-D mediolateral oblique (MLO) and craniocaudad (CC) views of both breasts were obtained. CAD: Full Field Digital Mammography with Computer Added Detection was performed. COMPARISON: Comparison is made with prior study dated October 02, 2018 and September 25, 2017. FINDINGS: Breast Composition: The breasts are extremely dense, which lowers the sensitivity of mammography. There are no dominant masses or suspicious calcifications. No other significant abnormalities are identified. There has been no significant change since the prior study. BI/SCREEN MAMM (CAD) W/JETT BILAT IMPRESSION: Stable bilateral screening mammogram. Yearly follow-up mammogram recommended. (A) ASSESSMENT CATEGORY: BIRADS Category 1: Negative. A letter regarding these results will be sent to the patient by the facility within 30 days. Approximately 10% of breast cancers are not detected by mammography. A normal mammogram should not delay biopsy of a clinically suspicious abnormality. [id number] Electronically Signed: Jamal Wakefield, at 13:42 EDT , Service support ,
== END | disposition home or self-care (01) ==
LOC: OPBI 12:55
PROVIDERS: PCP Family Medicine; Referring Provider Family Medicine; Visit Provider Family Medicine
DX: Z12.31 Encounter for screening mammogram for malignant neoplasm of breast (principal)
CPT/HCPCS: 77063; 77067

== ENCOUNTER → 2020-10-22 12:52 | Outpatient (CLI) | payer OTHER, SELFPAY ==
--- NOTE | 2020-10-22 12:56 | BI_ITS ---
MAMMOGRAPHY - BILATERAL SCREENING REASON FOR EXAM: Female, 55 years old. Routine annual screening examination. PERTINENT HISTORY: Mother with breast cancer. Aunts with breast cancer. TECHNIQUE: Digital bilateral breast jett (3D mammographic acquisition) in the CC and MLO projections. 2-D mediolateral oblique (MLO) and craniocaudad (CC) views of both breasts were obtained. CAD: Full Field Digital Mammography with Computer Added Detection was performed. COMPARISON: Comparison is made with prior study dated 10/10/2019 and 10/02/2018. FINDINGS: Breast Composition: The breasts are extremely dense, which lowers the sensitivity of mammography. There are no dominant masses or suspicious calcifications. No other significant abnormalities are identified. There has been no significant change since the prior study. BI/SCRN MAMM (CAD)W/JETT BILAT IMPRESSION: Stable bilateral screening mammogram. Yearly follow-up mammogram recommended. (A) ASSESSMENT CATEGORY: BIRADS Category 1: Negative. A letter regarding these results will be sent to the patient by the facility within 30 days. Approximately 10% of breast cancers are not detected by mammography. A normal mammogram should not delay biopsy of a clinically suspicious abnormality. [id number] Electronically Signed: Jamal Wakefield MD at 15:08 EDT , Service support ,
== END ==
PROVIDERS: PCP Family Medicine; Referring Provider Family Medicine; Visit Provider Family Medicine
DX: Z12.31 Encounter for screening mammogram for malignant neoplasm of breast (principal)
CPT/HCPCS: 77063; 77067

== ENCOUNTER 2021-06-01 14:10 | Outpatient (CLI) | payer OTHER, SELFPAY | END 2021-06-01 23:59 | disposition short-term general hospital (02) | LOC: LABSPEC 14:15 | PROVIDERS: PCP Family Medicine; Referring Provider Family Medicine; Visit Provider Family Medicine | DX: R30.0 Dysuria (principal) | CPT/HCPCS: 87086; 87088; 87186 ==

== ENCOUNTER → 2021-11-04 | Outpatient (CLI) | payer OTHER, SELFPAY ==
--- NOTE | 2021-11-04 12:44 | BI_ITS ---
MAMMOGRAPHY - BILATERAL SCREENING REASON FOR EXAM: Female, 56 years old. Routine annual screening examination. PERTINENT HISTORY: Mother with breast cancer. Aunt with breast cancer. TECHNIQUE: Digital bilateral breast jett (3D mammographic acquisition) in the CC and MLO projections. 2-D mediolateral oblique (MLO) and craniocaudad (CC) views of both breasts were obtained. CAD: Full Field Digital Mammography with Computer Added Detection was performed. COMPARISON: Mammograms from 10/22/2020, 10/10/2019, 10/02/2018, 09/25/2018. FINDINGS: Breast Composition: The breasts are extremely dense, which lowers the sensitivity of mammography. There are no dominant masses or suspicious calcifications. No other significant abnormalities are identified. There has been no significant change since the prior study. BI/SCRN MAMM (CAD)W/JETT BILAT IMPRESSION: Stable bilateral screening mammogram. Yearly follow-up mammogram recommended. (A) ASSESSMENT CATEGORY: BIRADS Category 1: Negative. A letter regarding these results will be sent to the patient by the facility within 30 days. Approximately 10% of breast cancers are not detected by mammography. A normal mammogram should not delay biopsy of a clinically suspicious abnormality. [id number] Electronically Signed: Deonte Bingham, at 13:32 EDT ,
== END | disposition home or self-care (01) ==
LOC: OPBI 12:43
PROVIDERS: PCP Family Medicine; Referring Provider Family Medicine; Visit Provider Family Medicine
DX: Z12.31 Encounter for screening mammogram for malignant neoplasm of breast (principal); Z80.3 Family history of malignant neoplasm of breast
CPT/HCPCS: 77063; 77067

== ENCOUNTER → 2022-11-08 | Outpatient (CLI) | payer OTHER, SELFPAY ==
--- NOTE | 2022-11-08 12:54 | BI_ITS ---
MAMMOGRAPHY - BILATERAL SCREENING REASON FOR EXAM: Female, 57 years old. Routine annual screening examination. PERTINENT HISTORY: Mother with breast cancer. Aunts with breast cancer. TECHNIQUE: Digital bilateral breast jett (3D mammographic acquisition) in the CC and MLO projections. 2-D mediolateral oblique (MLO) and craniocaudad (CC) views of both breasts were obtained. CAD: Full Field Digital Mammography with Computer Added Detection was performed. COMPARISON: Comparison is made with prior study November 04, 2021 and October 22, 2020. FINDINGS: Breast Composition: The breasts are extremely dense, which lowers the sensitivity of mammography. There are no dominant masses or suspicious calcifications. No other significant abnormalities are identified. There has been no significant change since the prior study. BI/SCRN MAMM (CAD)W/JETT BILAT IMPRESSION: Stable bilateral screening mammogram. Yearly follow-up mammogram recommended. (A) ASSESSMENT CATEGORY: BIRADS Category 1: Negative. A letter regarding these results will be sent to the patient by the facility within 30 days. Approximately 10% of breast cancers are not detected by mammography. A normal mammogram should not delay biopsy of a clinically suspicious abnormality. [id number] Electronically Signed: Jamal Wakefield MD at 13:54 EDT ,
== END | disposition home or self-care (01) ==
LOC: OPBI 12:53
PROVIDERS: PCP Family Medicine; Visit Provider Family Medicine
DX: Z12.31 Encounter for screening mammogram for malignant neoplasm of breast (principal); Z80.3 Family history of malignant neoplasm of breast
CPT/HCPCS: 77063; 77067

== ENCOUNTER → 2023-11-14 | Outpatient (CLI) | payer OTHER, SELFPAY ==
--- NOTE | 2023-11-14 14:45 | BI_ITS ---
MAMMOGRAPHY - BILATERAL SCREENING REASON FOR EXAM: Female, 58 years old. Routine annual screening examination. PERTINENT HISTORY: Mother with breast cancer. Aunts with breast cancer. TECHNIQUE: Digital bilateral breast jett (3D mammographic acquisition) in the CC and MLO projections. 2-D mediolateral oblique (MLO) and craniocaudad (CC) views of both breasts were obtained. CAD: Full Field Digital Mammography with Computer Added Detection was performed. COMPARISON: Comparison is made with prior study dated November 08, 2022 and November 04, 2021. FINDINGS: Breast Composition: The breasts are extremely dense, which lowers the sensitivity of mammography. There are no dominant masses or suspicious calcifications. No other significant abnormalities are identified. There has been no significant change since the prior study. BI/SCRN MAMM (CAD)W/JETT BILAT IMPRESSION: Stable bilateral screening mammogram. Yearly follow-up mammogram recommended. (A) ASSESSMENT CATEGORY: BIRADS Category 1: Negative. A letter regarding these results will be sent to the patient by the facility within 30 days. Approximately 10% of breast cancers are not detected by mammography. A normal mammogram should not delay biopsy of a clinically suspicious abnormality. [id number] Electronically Signed: Jamal Wakefield MD at 8:04 EDT ,
== END | disposition home or self-care (01) ==
LOC: OPBI 14:44
PROVIDERS: PCP Family Medicine; Referring Provider Family Medicine; Visit Provider Family Medicine
DX: Z12.31 Encounter for screening mammogram for malignant neoplasm of breast (principal); Z80.3 Family history of malignant neoplasm of breast
CPT/HCPCS: 77063; 77067

== ENCOUNTER 2024-10-04 02:32 | Outpatient (REF) | payer OTHER, SELFPAY ==
[2024-10-04 02:32] VITALS: BP 122/60; PULSE 75; RESP 14; TEMP 36.9; O2SAT 99; BMI 23.0
--- NOTE | 2024-10-04 02:43 | EX.ED.DYSGE1 ---
HPI History of Present Illness Chief Complaint: Occup Expose Informant: patient Narrative Narrative: Patient is a 59-year-old female with no reported significant past medical history. 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 She states that as she went to inject him he jerked away from her causing the needle to scratch her left index finger. She states that she was wearing gloves at the time and the injury only seems to have broken the initial skin surface and caused a small amount of blood. However as the patient has a reported history of hepatitis C and HIV needlestick exposure protocol was performed. Patient denies any other injury. PFSH PFS Home Medications ?Medication ?Instructions ?Recorded ?Last Taken ?Type emtricitabine 200 mg-tenofovir 1 tab PO DAILY 28 days #28 tabs 10/04/24 Unknown Rx disoproxil fumarate 300 mg tablet (Truvada) ondansetron 4 mg disintegrating 4 mg PO TID PRN nausea and 10/04/24 Unknown Rx tablet vomiting #28 tabs raltegravir 400 mg tablet 400 mg PO BID 28 days #56 tabs 10/04/24 Unknown Rx (Isentress) Allergy/AdvReac Type Severity Reaction Status Date / Time No Known Allergies Allergy Verified 03/22/18 14:32 Social History Smoking Status: Never smoker [facility] ED Constitutional Constitutional ED: Denies chills or fever(s) ENT ENT ED: Denies sore throat Cardiovascular Cardiovascular: Denies chest pain Respiratory/Chest Respiratory/Chest: Denies cough or dyspnea Gastrointestinal Gastrointestinal: Denies abdominal pain, diarrhea, nausea or vomiting Integumentary Reports other Details: Positive left index needlestick Neurologic Neurologic: Denies headache(s) or paresthesias Hematologic/Lymphatic Hematologic/Lymphatic: Denies easy bleeding or easy bruising EXAM Physical Exam Const Vital Signs: 10/04/24 02:32 Temperature 98.5 F Temperature Source Oral Pulse Rate 75 Respiratory Rate 14 Blood Pressure 122/60 H Blood Pressure Mean 80 Pulse Ox 99 Positive well nourished and well developed General Appearance ED: well developed; Negative for pallor HEENT HEENT Narrative: Normocephalic atraumatic Eyes PERRL and EOMs intact bilaterally Neck supple Resp normal respiratory effort and clear to auscultation bilaterally Cardio regular rate and regular rhythm Extremity Extremity Narrative: Left upper extremity is neurovascularly intact Patient has a superficial/dermal layer needlestick injury to the left index finger. There is faint drainage blood without surrounding erythema or warmth. No crepitance or lymphangitic streaking. Neuro oriented x3, CN's II-XII intact bilaterally and no sensory deficits noted Sensorium / Orientation: alert Motor Exam: strength 5/5 throughout Psych mental status grossly normal Skin no rashes or lesions noted Skin Narrative: Changes to the left index finger consistent with needlestick injury as documented above General Skin Exam: Negative for jaundice or pallor MDM MDM MDM Narrative Medical decision making narrative: Patient has stable vitals. There was needlestick injury with blood-borne product which is concerning for potential infection such as hepatitis C or HIV based on the patient's known past medical history. Secondary to this basic postexposure protocol was performed. At this time as the patient has known HIV I do feel that even of the risk for infection from this small needlestick injury is extremely low it would be in her best interest to take antiviral prophylaxis. Therefore the patient was started on Truvada and Isentress as directed by the postexposure protocol. However as there is no signs of surrounding erythema or warmth or streaking or concern for systemic infection there is no need for further workup and she is otherwise safe for discharge History & Record Review Discussion w/independent historian: Patient Lab Data Attestation: I reviewed the patient's lab results. 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
[2024-10-04] MEDS: EMTRICITABINE/TENOFOVIR 1 TABLET TABLET PO (02:56)
[2024-10-04] MEDS: RALTEGRAVIR POTASSIUM 400 MG TABLET PO (02:56)
[2024-10-04] MEDS: Ondansetron ODT 4 MG Tablet PO (02:56)
[2024-10-04 03:30] LABS: Hepatitis B Surface Antibody REAC
[2024-10-04 03:42] LABS: Anion Gap 13 (5-15); BUN 19 mg/dL (4-19); BUN/Creat Ratio 23.2 RATIO (10-20); Calcium,Total 9.8 mg/dL (7.6-11.0); Carbon Dioxide 24.9 mmol/L (21.0-32.0); Chloride 104 mmol/L (98-108); EST Glomerular Filtration Rate 84 (>60); Estimated Creatinine Clearance 64.58 ml/min (50-250); Glucose 120 mg/dL (70-99); HIV Nonreactive (Nonreactive); Hepatitis B Surface Antigen Nonreactive (Nonreactive); Hepatitis C Antibody Nonreactive (Nonreactive); Potassium 3.3 mmol/L (3.3-5.1); Sodium Level 141 mmol/L (133-145)
== END 2024-10-04 03:15 | disposition home or self-care (01) ==
LOC: EDREF 02:32
PROVIDERS: PCP Family Medicine; Visit Provider Emergency Medicine
DX: S61.231A Puncture wound without foreign body of left index finger without damage to nail, initial encounter (principal); W46.1XXA Contact with contaminated hypodermic needle, initial encounter; Z20.5 Contact with and (suspected) exposure to viral hepatitis; Z20.6 Contact with and (suspected) exposure to human immunodeficiency virus [HIV]; Y99.0 Civilian activity done for income or pay
CPT/HCPCS: 80048; 86703; 86706; 86803; 87340

== ENCOUNTER → 2024-11-15 | Outpatient (CLI) | payer OTHER, SELFPAY ==
--- NOTE | 2024-11-15 14:34 | BI_ITS ---
EXAM: SCRN MAMM (CAD)W/JETT BILAT 11/15/2024 CLINICAL HISTORY: F, Age 59 y/o , SCREENING TECHNIQUE: Bilateral screening digital breast tomosynthesis with 2D and 3D images. Computer aided detection. COMPARISON: Prior exam(s) dated 11/14/2023, 11/08/2022, 11/04/2021. FINDINGS: TISSUE DENSITY: The breast tissue is extremely dense which lowers the sensitivity of mammography. The mammogram demonstrates that the patient has dense breasts. Supplemental screening with whole breast ultrasound or MRI may be considered for further evaluation. Bilateral Breast Mammographic Findings: No significant masses, calcifications or other abnormalities are identified. BI/SCRN MAMM (CAD)W/JETT BILAT IMPRESSION: Right Breast: BIRADS 1 NEGATIVE. Left Breast: BIRADS 1 NEGATIVE. OVERALL FINAL ASSESSMENT: BIRADS 1 NEGATIVE. RECOMMENDATION: Routine annual follow-up in 1 Year A letter with findings and recommendations will be mailed to the patient. Reading Location: [id number]
== END | disposition home or self-care (01) ==
PROVIDERS: PCP Family Medicine; Referring Provider Family Medicine; Visit Provider Family Medicine
DX: Z12.31 Encounter for screening mammogram for malignant neoplasm of breast (principal)
CPT/HCPCS: 77063; 77067

== ENCOUNTER → 2024-12-23 | Outpatient (CLI) | payer OTHER, SELFPAY ==
--- OUTSIDE RECORDS SUMMARY | 2024-12-24 19:17 | XMS RPT_ITS | CCD ---
Author Organization [facility] Care Team Providers Care Geology Instructor Name Role Phone LEO BARLOW ([facility]) Unavailable Unavailable Hussein ELDRIDGE, Dr. Gastelum Primary Care Provider [phone] Manuel Barrera DO Emergency Provider [phone] Holly ELDRIDGE, Dr. Jackson Attending Provider [phone] Hussein ELDRIDGE, Dr. Gastelum Attending Provider [phone] Hussein ELDRIDGE, Dr. Gastelum Referring Provider [phone] Dr. Pankaj Rubio MD Attending Provider Dr. Pankaj Rubio MD Referring Provider [phone] Hussein, Oriana Primary Care Unavailable Pankaj Rubio Attending Unavailable Pankaj Rubio Referring Unavailable Assessment, Health Risk Referring Unavaila ble Malys, Oriana Primary Care Unavailable Assessment, Health Risk Attending Unavaila ble Malys, Oriana Primary Care Unavailable Pankaj Rubio Attending Unavailable Malys, Oriana Primary Care Unavailable Malys, Oriana Attending Unavailable Malys, Oriana Referring Unavailable Malys, Oriana Primary Care Unavailable Manuel Barrera Attending Unavailable Medications Current Medications Medication Drug Class(es) Dates Sig (Normalized) Sig (Original) emtricitabine 200 mg / tenofovir disoproxil fumarate 300 mg oral tablet (2 sources) Human Immunodeficiency Virus Nucleoside Analog Reverse Transcriptase Inhibitor Start: 10-04-2024 take 1 tablet by mouth once daily Emtricitabine-Te nofovir (Tdf) (Truvada) 200-300 mg tablet Active 1 {tbl} PO DAILY 28 28 0 October 04, 2024 12:00am ondansetron 4 mg disintegrating oral tablet (2 sources) Serotonin-3 Receptor Antagonist Start: 10-04-2024 take 1 tablet by mouth three times daily as needed for nausea and vomiting Ondansetron 4 mg tablet,disintegr ating Active 4 mg PO THREE TIMES A DAY as needed for nausea and vomiting October 04, 2024 2:44am raltegravir 400 mg oral tablet (2 sources) Human Immunodeficiency Virus Integrase Strand Transfer Inhibitor Start: 10-04-2024 take 1 tablet by mouth twice daily Raltegravir (Isentress) 400 mg tablet Active 400 mg PO TWICE A DAY 56 October 04, 2024 12:00am Problems Problem Classification Problem Date Documented Date Episodic/Chronic E Codes: Cut/pierceb (2 sources) Contact with contaminated hypodermic needle, initial encounter; Translations: [Accidental needlestick injury with exposure to body fluid] 10-04-2024 Episodic Immunizations and screening for infectious disease (2 sources) Contact with and (suspected) exposure to human immunodeficiency virus [HIV]; Translations: [Contact with and (suspected) exposure to viral hepatitis] Onset: 11-18-2024 Episodic Other screening for suspected conditions (not mental disorders or infectious disease) (1 source) Encounter for screening mammogram for malignant neoplasm of breast; Translations: [Encounter for screening mammogram for malignant neoplasm of breast] Onset: 11-22-2024 Episodic Results Test Name Value Interpretation Reference Range Facility CBC, Employeeon 12-20-2024 Absolute Lymph 1.85 X10 3/uL Normal 0.83-4.51 [facility] Comment on above: Performed By: #### L 500.2900, L400.0100, L100.0200 #### [facility] Laboratory [address] [place], [address] Absolute Neut 2.8 X10 3/uL Normal 2.0-7.7 [facility] Comment on above: Performed By: #### L 500.2900, L400.0100, L100.0200 #### [facility] [address] [place], [address] Basophils/100 WBC (Bld) 0.4 % Normal 0-1 [facility] Comment on above: Performed By: #### L 500.2900, L400.0100, L100.0200 #### [facility] [address] [place], [address] Eosinophils/100 WBC (Bld) 2.0 % Normal 0-5 [facility] Comment on above: Performed By: #### L 500.2900, L400.0100, L100.0200 #### [facility] [address] [place], [address] Erythrocyte distribution width (RBC) [Ratio] 13.2 % Normal 11.6-14.6 [facility] Comment on above: Performed By: #### L 500.2900, L400.0100, L100.0200 #### [facility] [address] [place], [address] Hematocrit (Bld) [Volume fraction] 39.7 % Normal 37-47 [facility] Comment on above: Performed By: #### L 500.2900, L400.0100, L100.0200 #### [facility] [address] [place], [address] Hemoglobin (Bld) [Mass/Vol] 13.1 g/dL Normal 12.0-15.0 [facility] Comment on above: Performed By: #### L 500.2900, L400.0100, L100.0200 #### [facility] [address] [place], [address] Lymphocytes/100 WBC (Bld) 36.1 % Normal 19-41 [facility] Comment on above: Performed By: #### L 500.2900, L400.0100, L100.0200 #### [facility] [address] [place], [address] MCH (RBC) [Entitic mass] 28.4 pg Normal 27.0-32.0 [facility] Comment on above: Performed By: #### L 500.2900, L400.0100, L100.0200 #### [facility] [address] [place], [address] MCHC (RBC) [Mass/Vol] 33.0 g/dL Normal 32-36 [facility] Comment on above: Performed By: #### L 500.2900, L400.0100, L100.0200 #### [facility] [address] [place], [address] MCV (RBC) [Entitic vol] 85.9 fL Normal 81-99 [facility] Comment on above: Performed By: #### L 500.2900, L400.0100, L100.0200 #### [facility] [address] [place], [address] Monocytes/100 WBC (Bld) 7.4 % Normal 0-10 [facility] Comment on above: Performed By: #### L 500.2900, L400.0100, L100.0200 #### [facility] [address] [place], [address] Neutrophils/100 WBC (Bld) 53.7 % Normal 47-70 [facility] Comment on above: Performed By: #### L 500.2900, L400.0100, L100.0200 #### [facility] [address] [place], [address] NRBC # 0.00 10 3/uL Normal 0-5 [facility] Comment on above: Performed By: #### L 500.2900, L400.0100, L100.0200 #### [facility] [address] [place], [address] Nucleated RBC (Bld) [#/Vol] 0 10*3/uL Normal 0-5 [facility] Comment on above: Performed By: #### L 500.2900, L400.0100, L100.0200 #### [facility] [address] [place], [address] Platelet mean volume (Bld) [Entitic vol] 8.8 fL Normal 6.2-12.0 [facility] Comment on above: Performed By: #### L 500.2900, L400.0100, L100.0200 #### [facility] [address] [place], [address] Platelets (Bld) [#/Vol] 239 10*3/uL Normal 150-450 [facility] Comment on above: Performed By: #### L 500.2900, L400.0100, L100.0200 #### [facility] [address] [place], [address] RBC (Bld) [#/Vol] 4.62 10*6/uL Normal 4.2-5.4 [facility] Comment on above: Performed By: #### L 500.2900, L400.0100, L100.0200 #### [facility] [address] [place], [address] RDW SD 41.5 fl Normal 35.1-43.9 [facility] Comment on above: Performed By: #### L 500.2900, L400.0100, L100.0200 #### [facility] [address] [place], [address] WBC (Bld) [#/Vol] 5.1 10*3/uL Normal 4.4-11.[address] [facility] Comment on above: Performed By: #### L 500.2900, L400.0100, L100.0200 #### [facility] [address] [place], [address] Employee Profileon 5 LDH 176 U/L Normal 84-246 [facility] Comment on above: Performed By: #### L 500.2900, L400.0100, L100.0200 #### [facility] [address] [place], [address] Phosphate [Mass/Vol] 3.3 mg/dL Normal 2.7-4.5 [facility] Comment on above: Performed By: #### L 500.2900, L400.0100, L100.0200 #### [facility] [address] [place], [address] URIC 3.7 mg/dL Normal 2.6-6.0 [facility] Comment on above: Result Comment: The drugs N-Acetylcysteine and Metamizole may falsely depress this assay. Performed By: #### L 500.2900, L400.0100, L100.0200 #### [facility] [address] [place], [address] Urinalysis, Employeeon 12-20 BILIRUBIN URINE Negative Normal Negative [facility] Comment on above: Order Comment: Urine , Random Performed By: #### L 500.2900, L400.0100, L100.0200 #### [facility] [address] [place], [address] Clarity (U) Clear Normal Clear [facility] Comment on above: Order Comment: Urine , Random Performed By: #### L 500.2900, L400.0100, L100.0200 #### [facility] [address] [place], [address] Color (U) Yellow Normal Yellow [facility] Comment on above: Order Comment: Urine , Random Performed By: #### L 500.2900, L400.0100, L100.0200 #### [facility] [address] [place], [address] GLUCOSE, UR Normal Normal Normal [facility] Comment on above: Order Comment: Urine , Random Performed By: #### L 500.2900, L400.0100, L100.0200 #### [facility] [address] [place], [address] KETONE UR Negative Normal Negative [facility] Comment on above: Order Comment: Urine , Random Performed By: #### L 500.2900, L400.0100, L100.0200 #### [facility] [address] [place], [address] LEUK ESTERASE Negative Normal Negative [facility] Comment on above: Order Comment: Urine , Random Performed By: #### L 500.2900, L400.0100, L100.0200 #### [facility] [address] [place], [address] Nitrite Ql (U) Negative Normal Negative [facility] Comment on above: Order Comment: Urine , Random Performed By: #### L 500.2900, L400.0100, L100.0200 #### [facility] [address] [place], [address] OCCULT BLOOD-UR 10 /ul Abnormal Negative [facility] Comment on above: Order Comment: Urine , Random Performed By: #### L 500.2900, L400.0100, L100.0200 #### [facility] [address] [place], [address] pH UR 8.0 Normal 5.0 - 8.0 [facility] Comment on above: Order Comment: Urine , Random Performed By: #### L 500.2900, L400.0100, L100.0200 #### [facility] [address] [place], [address] PROT DIPSTX Negative Normal Negative [facility] Comment on above: Order Comment: Urine , Random Performed By: #### L 500.2900, L400.0100, L100.0200 #### [facility] [address] [place], [address] SP.GR. DIPSTX 1.010 Normal 1.002-1.030 [facility] Comment on above: Order Comment: Urine , Random Performed By: #### L 500.2900, L400.0100, L100.0200 #### [facility] [address] [place], [address] UROBILI Normal Normal Normal [facility] Comment on above: Order Comment: Urine , Random Performed By: #### L 500.2900, L400.0100, L100.0200 #### [facility] [address] [place], [address] L3410.9992on 11-19-2024 [facility] Misc. COMMENT Normal . [facility] Comment on above: Order Comment: [id number] UNOPENED TIGER RF Result Comment: Test Ordered: [id number] HIV Ab/p24 Ag with Reflex HIV Ab/p24 Ag Screen Note: CB Non Reactive Reference Range: Non Reactive HIV-1/HIV-2 antibodies and HIV-1 p24 antigen were NOT detected. There is no laboratory evidence of HIV infection. HIV Negative Performed at: [facility] [id number] Strap Folding Machine Operator: Solomon Gresham PhD, Phone: [phone] Performed By: #### L 3410.9994, L3410.9992 #### [facility] [address] [place], [address] L3410.9994on 11-19-2024 [facility] Mis. 2 COMMENT Normal . [facility] Comment on above: Order Comment: 02834 0HCV QUANT TIGER RF Result Comment: Test Ordered: [id number] HCV Antibody RFX to Quant PCR HCV Ab Note: CB Non Reactive Reference Range: Non Reactive Interpretation: Comment CB Reference Range: . Not infected with HCV unless early or acute infection is suspected (which may be delayed in an immunocompromised individual), or other evidence exists to indicate HCV infection. Performed at: [facility] [id number] Strap Folding Machine Operator: Solomon Gresham PhD, Phone: [phone] Performed By: #### L 3890.6202, L3890.6102, L3890.6006, L3890.6301, L500.2500 #### [facility] [address] [place], [address] Breast imaging reportOrdered By: Bre Kaiser on 11-15-2024 Study report [facility] Imaging Services [address] [place] [address] SCRN MAMM (CAD)W/JETT BILAT MR#: [id number] Acct: [id number] Name: GINETTE MORTON Rep #: [id number] : 1965 F 59 From: Cecily Kaiser MD PCP: Dr. Oriana Savage DO Status: [facility] CLI Study:SCRN MAMM (CAD)W/JETT BILAT Date of Exa m: 11/15/24 Exam# [id number] Ordering Dr: Irina Savage sa, DO EXAM: SCRN MAMM (CAD)W/JETT BILAT 11/15/2024 CLINICAL HISTORY: F, Age 59 y/o , SCREENING TECHNIQUE: Bilateral screening digital breast tomosynthesis with 2D and 3D images. Computeraided detection. COMPARISON: Prior exam(s) dated 11/14/2023, 11/08/2022, 11/04/2021. FINDINGS: TISSUE DENSITY: The breast tissue is extremely dense which lowers the sensitivity of mammography. The mammogram demonstrates that the patient has dense breasts. Supplemental screening with whole breast ultrasound or MRI may be considered for further evaluation. Bilateral Breast Mammographic Findings: No significant masses, calcifications or other abnormalities are identified. BI/SCRN MAMM (CAD)W/JETT BILAT IMPRESSION: Right Breast: BIRADS 1 NEGATIVE. Left Breast: BIRADS 1 NEGATIVE. OVERALL FINAL ASSESSMENT: BIRADS 1 NEGATIVE. RECOMMENDATION: Routine annual follow-up in 1 Year A letter with findings and recommendations will be mailed to the patient. Reading Location: [facility] CC: Dr. Oriana Savage DO ~ Irradiated Fuel Handler: Signed [facility] SCRN MAMM (CAD)W/JETT BILATo n 11-15-2024 SCRN MAMM (CAD)W/JETT BILAT [facility] Imaging Services [address] [place], [place] [address] SCRN MAMM (CAD)W/JETT BILAT MR#: [id number] Acct: [id number] Name: GINETTE MORTON Rep #: [id number] : 1965 F 59 From: Bre Kaiser MD PCP: Dr. Oriana Savage DO Status: REG CLI Study: SCRN MAMM (CAD)W/JETT BILAT Date of Exam: 10/28 Exam# [id number] Ordering Dr: Oriana Savage DO EXAM: SCRN MAMM (CAD)W/JETT BILAT 11/15/2024 CLINICAL HISTORY: F, Age 59 y/o , SCREENING TECHNIQUE: Bilateral screening digital breast tomosynthesis with 2D and 3D images. Computer aided detection. COMPARISON: Prior exam(s) dated 11/14/2023, 11/08/2022, 11/04/2021. FINDINGS: TISSUE DENSITY: The breast tissue is extremely dense which lowers the sensitivity of mammography. The mammogram demonstrates that the patient has dense breasts. Supplemental screening with whole breast ultrasound or MRI may be considered for further evaluation. Bilateral Breast Mammographic Findings: No significant masses, calcifications or other abnormalities are identified. BI/SCRN MAMM (CAD)W/JETT BILAT IMPRESSION: Right Breast: BIRADS 1 NEGATIVE. Left Breast: BIRADS 1 NEGATIVE. OVERALL FINAL ASSESSMENT: BIRADS 1 NEGATIVE. RECOMMENDATION: Routine annual follow-up in 1 Year A letter with findings and recommendations will be mailed to the patient. Reading Location: [facility] CC: Dr. Oriana Savage DO Irradiated Fuel Handler: Signed Normal [facility] Anion gap in Serum or Plasma Ordered By: Manuel Barrera on 10-04-2024 Anion gap [Moles/Vol] 13 mmol/L 5-15 [facility] BUN/creatinine ratioOrdered By: Manuel Barrera on 10-04-2024 Urea nitrogen/Creatinine [Mass ratio] 23.2 mg/mg High - [facility] Basic Metabolic Profile (BMP )on 10-04-2024 BUN/CRE 23.2 RATIO High - [facility] Comment on above: Order Comment: Reaso n for Exam: exposure Performed By: #### L 3890.6202, L3890.6102, L3890.6006, L3890.6301, L500.2500 #### [facility] Laboratory [address] [place], [address] Calcium [Mass/Vol] 9.8 mg/dL Normal 7.6-11.[address] [facility] Comment on above: Order Comment: Reaso n for Exam: exposure Performed By: #### L 3890.6202, L3890.6102, L3890.6006, L3890.6301, L500.2500 #### [facility] Laboratory [address] [place], [address] Chloride [Moles/Vol] 104 mmol/L Normal 98-108 [facility] Comment on above: Order Comment: Reaso n for Exam: exposure Performed By: #### L 3890.6202, L3890.6102, L3890.6006, L3890.6301, L500.2500 #### [facility] Laboratory [address] [place], [address] CO2 [Moles/Vol] 24.9 mmol/L Normal 21.0-32.0 [facility] Comment on above: Order Comment: Reaso n for Exam: exposure Performed By: #### L 3890.6202, L3890.6102, L3890.6006, L3890.6301, L500.2500 #### [facility] [address] [place], [address] Creatinine [Mass/Vol] 0.80 mg/dL Normal 0.70-1.20 [facility] Comment on above: Order Comment: Reaso n for Exam: exposure Performed By: #### L 3890.6202, L3890.6102, L3890.6006, L3890.6301, L500.2500 #### [facility] [address] [place], [address] ECRCL 64.58 ml/min Normal 50-250 [facility] Comment on above: Order Comment: Reaso n for Exam: exposure Performed By: #### L 3890.6202, L3890.6102, L3890.6006, L3890.6301, L500.2500 #### [facility] [address] [place], [address] GAP 13 Normal 5-15 [facility] Comment on above: Order Comment: Reaso n for Exam: exposure Performed By: #### L 3890.6202, L3890.6102, L3890.6006, L3890.6301, L500.2500 #### [facility] [address] [place], [address] GFR/1.73 sq M.predicted among non-blacks MDRD (S/P/Bld) [Vol rate/Area] 84 mL/min/{1.73_m2} Normal >60 [facility] Comment on above: Order Comment: Reaso n for Exam: exposure Result Comment: mL/m in/1.73m2 CKD-EPI Creatinine Equation (2020) Performed By: #### L 3890.6202, L3890.6102, L3890.6006, L3890.6301, L500.2500 #### [facility] [address] [place], [address] Glucose [Mass/Vol] 120 mg/dL High 70-[address] [facility] Comment on above: Order Comment: Reaso n for Exam: exposure Performed By: #### L 3890.6202, L3890.6102, L3890.6006, L3890.6301, L500.2500 #### [facility] [address] [place], [address] Potassium [Moles/Vol] 3.3 mmol/L Normal 3.3-5.1 [facility] Comment on above: Order Comment: Reaso n for Exam: exposure Performed By: #### L 3890.6202, L3890.6102, L3890.6006, L3890.6301, L500.2500 #### [facility] [address] [place], [address] Sodium [Moles/Vol] 141 mmol/L Normal 133-[address] [facility] Comment on above: Order Comment: Reaso n for Exam: exposure Performed By: #### L 3890.6202, L3890.6102, L3890.6006, L3890.6301, L500.2500 #### [facility] [address] [place], [address] Urea nitrogen [Mass/Vol] 19 mg/dL Normal 4-19 [facility] Comment on above: Order Comment: Reaso n for Exam: exposure Performed By: #### L 3890.6202, L3890.6102, L3890.6006, L3890.6301, L500.2500 #### [facility] Laboratory [address] [place], [address] Carbon dioxide, total [Moles /volume] in Central venous bloodOrdered By: Manuel Barrera on 10-04-2024 CO2 [Moles/Vol] 24.9 mmol/L 21.0-32.0 [facility] Chloride assayOrdered By: Ivory Barrera on 10-04-2024 Chloride [Moles/Vol] 104 mmol/L 98-108 [facility] Emergency Department Summary on 10-04-2024 Emergency Department Summary [facility] Medical Records Department [address] [place] [address] Emergency Department Summary 10/04/24 MR#: [id number] Acct: [id number] Name: GINETTE MORTON Rep #: [id number] : 1965 59 From: Manuel Barrera DO PCP: Dr. Oriana Savage, DO Status:DEP REF Location: EDREF HPI History of Present Illness Chief Complaint: Occup Expose Informant: patient Narrative Narrative: Patient is a 59-year-old female with no reported significant past medical history. 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 She states that as she went to inject him he jerked away from her causing the needle to scratch her left index finger. She states that she was wearing gloves at the time and the injury only seems to have broken the initial skin surface and caused a small amount of blood. However as the patient has a reported history of hepatitis C and HIV needlestick exposure protocol was performed. Patient denies any other injury. PFSH PFS Home Medications ???Medication ???Instructions ???Recorded ???Last Taken ???Type emtricitabine 200 mg-tenofovir 1 tab PO DAILY 28 days #28 tabs Unknown Rx disoproxil fumarate 300 mg tablet (Truvada) ondansetron 4 mg disintegrating 4 mg PO TID PRN nausea and 5 Unknown Rx tablet vomiting #28 tabs raltegravir 400 mg tablet 400 mg PO BID 28 days #56 tabs 02/20 Unknown Rx (Isentress) Allergy/AdvReac Type Severity Reaction Status Date / Time No Known Allergies Allergy Verified 03/22/18 14:32 Social History Smoking Status: Never smoker ROS [facility] ED Constitutional Constitutional ED: Denies chills or fever(s) ENT ENT ED: Denies sore throat Cardiovascular Cardiovascular: Denies chest pain Respiratory/Chest Respiratory/Chest: Denies cough or dyspnea Gastrointestinal Gastrointestinal: Denies abdominal pain, diarrhea, nausea or vomiting Integumentary Reports other Details: Positive left index needlestick Neurologic Neurologic: Denies headache(s) or paresthesias Hematologic/Lymphatic Hematologic/Lymphatic: Denies easy bleeding or easy bruising EXAM Physical Exam Const Vital Signs: 10/04/24 02:32 Temperature 98.5 F Temperature Source Oral Pulse Rate 75 Respiratory Rate 14 Blood Pressure 122/60 H Blood Pressure Mean 80 Pulse Ox 99 Positive well nourished and well developed General Appearance ED: well developed; Negative for pallor HEENT HEENT Narrative: Normocephalic atraumatic Eyes PERRL and EOMs intact bilaterally Neck supple Resp normal respiratory effort and clear to auscultation bilaterally Cardio regular rate and regular rhythm Extremity Extremity Narrative: Left upper extremity is neurovascularly intact Patient has a superficial/dermal layer needlestick injury to the left index finger. There is faint drainage blood without surrounding erythema or warmth. No crepitance or lymphangitic streaking. Neuro oriented x3, CN's II-XII intact bilaterally and no sensory deficits noted Sensorium / Orientation: alert Motor Exam: strength 5/5 throughout Psych mental status grossly normal Skin no rashes or lesions noted Skin Narrative: Changes to the left index finger consistent with needlestick injury as documented above General Skin Exam: Negative for jaundice or pallor MDM MDM MDM Narrative Medical decision making narrative: Patient has stable vitals. There was needlestick injury with blood-borne product which is concerning for potential infection such as hepatitis C or HIV based on the patient's known past medical history. Secondary to this basic postexposure protocol was performed. At this time as the patient has known HIV I do feel that even of the risk for infection from this small needlestick injury is extremely low it would be in her best interest to take antiviral prophylaxis. Therefore the patient was started on Truvada and Isentress as directed by the postexposure protocol. However as there is no signs of surrounding erythema or warmth or streaking or concern for systemic infection there is no need for further workup and she is otherwise safe for discharge History Record Review Discussion w/independent historian: Patient Lab Data Attestation: I reviewed the patient's lab results. Labs: Laboratory Results - last 24 hr 10/04/24 02:39 Sodium 141 Potassium 3.3 Chloride 104 Carbon Dioxide 24.9 Anion Gap 13 BUN 19 Creatinine 0.80 Estim Creat Clear Calc 64.58 Est GFR (MDRD) Non-Af 84 BUN/Creatinine Ratio 23.2 H Glucose 120 H Calcium 9.8 Hep Bs Antigen Nonreactive Hep Bs Antibody REAC Hepatitis C Antibody Nonreactive HIV 1 2 Antibody Nonreactive Discharge Plan Admission Primary [place] (more content not included)... Normal [facility] Glomerular filtration rate ( GFR) estimation/1.73 sq m using serum, plasma, or whole bOrdered By: Manuel Barrera on 10-04-2024 GFR/1.73 sq M.predicted among non-blacks MDRD (S/P/Bld) [Vol rate/Area] 84 mL/min/{1.73_m2} >60 [facility] Comment on above: mL/min/1.73m2 CKD-EP I Creatinine Equation (2020) HIVon 10-04-2024 HIV Non-Reactive Normal Nonreactive [facility] Comment on above: Order Comment: Reaso n for Exam: exposure Result Comment: Non- Reactive Reactive Repeatedly reactive samples must be confirmed according to CDC recommended confirmatory algorithms. The subresults for either HIVAG or AHIV can be used as an aid in the selection of the confirmation algorithm for reactive samples. Send out specimens with Reactive results to [facility] for confirmation. Order the HIV antibody detection and differentiation: lc#[id number] Performed By: #### L 3890.6202, L3890.6102, L3890.6006, L3890.6301, L500.2500 #### [facility] Laboratory [address]. [place], [place], [id number] Hepatitis B Surface Antibody on 10-04-2024 HEP B Surf Ab REAC Normal [facility] Comment on above: Result Comment: <8.5 mIU/mL: Non-Reactive 8.5<= x <11.5 mIU/mL: Indeterminate >=11.5 mIU/mL: Reactive Non Reactive: Inconsistent with immunity less than <10 mIU/mL Reactive: Consistent with immunity greater than or equal to 10 mIU/mL Performed By: #### L 3890.6202, L3890.6102, L3890.6006, L3890.6301, L500.2500 #### [facility] [address] [place], [place], [id number] Hepatitis C Antibodyon 10-04 Hepatitis C Ab Non-Reactive Normal Nonreactive [facility] Comment on above: Order Comment: Reaso n for Exam: exposure Result Comment: Reac tive: Presumptive evidence of antibodies to HCV. Follow CDC recommendations for supplemental testing. Non-Reactive: Antibodies to HCV were not detected; does not exclude the possibility of exposure to HCV Reactive Results are presumptive evidence of antibodies to HCV. Follow CDC recommendations for supplemental testing. Order confirmation testing: HCV Quant by PCR testing - HCVPCR lc#[id number] Non Reactive: < 0.8 Equivocal: >/= 0.8 to < 1.0 Reactive: >/= 1.0 The CDC requires that a reactive/equivocal HCV antibody result be sent out for confirmation. HCV Quant by PCR testing. Performed By: #### L 3890.6202, L3890.6102, L3890.6006, L3890.6301, L500.2500 #### [facility] [address] [place], [address] L3890.6102on 10-04-2024 HEP B Surf Ag Non-Reactive Normal Nonreactive [facility] Comment on above: Order Comment: Reaso n for Exam: exposure Result Comment: Reac tive: Presumptive evidence of HBV. Repeatedly reactive samples must be confirmed using a neutralization test ([employer] HBsAg Confirmatory Test) Non-Reactive: HBsAg not detected; does not exclude the possibility of exposure to HBV Performed By: #### L 3890.6202, L3890.6102, L3890.6006, L3890.6301, L500.2500 #### [facility] [address] [place], [place], [address] Laboratory - Microbiology an d Antimicrobial susceptibilityOrdered By: Manuel Barrera on 10-04-2024 HBV surface Ag Ql (S) Non-Reactive Nonreactive [facility] Comment on above: Reactive: Presumptiv e evidence of HBV. Repeatedly reactive samples must be confirmed using a neutralization test ([employer] HBsAg Confirmatory Test)Non-Reactive: HBsAg not detected; does not exclude the possibility of exposure to HBV No Panel InformationOrdered By: Manuel Barrera on 10-04-2024 HIV (1&2) Antibody Non-Reactive Nonreactive [facility] Comment on above: Non-ReactiveReactive Repeatedly reactive samples must be confirmed according to CDC recommended confirmatory algorithms. The subresults for either HIVAG or AHIV can be used as an aid in the selection of the confirmation algorithm for reactive samples.Send out specimens with Reactive results to [facility] for confirmation.Order the HIV antibody detection and differentiation: lc#[id number] Potassium measurement (mass/ volume)Ordered By: Manuel Barrera on 10-04-2024 Potassium (Unsp spec) [Mass/Vol] 3.3 mmol/L 3.3-5.1 [facility] Serum creatinine measurement (mass/volume)Ordered By: Manuel Barrera on 10-04-2024 Creatinine [Mass/Vol] 0.80 mg/dL 0.70-1.20 [facility] Serum glucose measurement (m ass/volume)Ordered By: Manuel Barrera on 10-04-2024 Glucose [Mass/Vol] 120 mg/dL High 70-[address] [facility] Serum hepatitis B virus surf jaleel antibody detectionOrdered By: Manuel Barrera on 10-04-2024 HBV surface Ab Ql (S) REAC [facility] Comment on above: <8.5 mIU/mL: Non-[place] ctive8.5<= x <11.5 mIU/mL: Indeterminate>=11.5 mIU/mL: Reactive Non Reactive: Inconsistent with immunity less than <10 mIU/mL Reactive: Consistent with immunity greater than or equal to 10 mIU/mL Serum or plasma calcium maru urement (mass/volume)Ordered By: Manuel Barrera on 10-04-2024 Calcium [Mass/Vol] 9.8 mg/dL 7.6-11.[address] [facility] Serum or plasma urea nitroge n measurement (mass/volume)Ordered By: Manuel Barrera on 10-04-2024 Urea nitrogen [Mass/Vol] 19 mg/dL 4-19 [facility] Sodium levelOrdered By: Alexis Barrera on 10-04-2024 Sodium [Moles/Vol] 141 mmol/L 133-[address] [facility] PROGRESSon 04-01-2018 Protein mass conc HNO ID: [id number]: Edmund Pedroervice: (none)Author Type: PhysicianType: Progress NotesFiled: 04/01/2018 12:54 PMNote Text:OPERATIVE NOTATION FOR [facility] SURGICAL PROCEDURE.March 26, 2018Ginette Morton 1965 [id number] femalePROCEDURE: COLONOSCOPY - [id number]: Anil Escobar M.D. FACS LENS ENGRAVER: NoneDEPT: NORMA PROVIDER: [id number] Escobar MD POS: [id number]: (Z12.11) Special screening for malignant neoplasms, colon(primary encounter diagnosis)ASA CLASS: 2 - mildFINDINGS:COMPLICATIO NS: NonePMHx -PAST MEDICAL HISTORYDiagnosis Date- MigrainesCOMORBIDITIES - NonePost Op Occurrences - NoneWound Classification - Clean ContaminatedOperative note dictated in the [facility] dictationsystem.Edmund Escobar MD [facility] CNOPon 03-26-2018 Protein mass conc Operative Note (Enc) (GENSWS) Progress Notes:Edmund Escobar MD 04/01/2018 12:54 PM SignedOPERATIVE NOTATION FOR [facility] SURGICAL [facility]ED[facility].March 26, 2018Felicianoedd Morton 1965 [id number] femalePROCEDURE: COLONOSCOPY - [id number]: Anil Escobar M.D. FACS LENS ENGRAVER: NoneDEPT: NORMA PROVIDER: [id number] Escobar MD POS:[id number] SIS: (Z12.11) Special screening for malignant neoplasms, colon (primaryencounter diagnosis)ASA CLASS: 2 - mildFINDINGS:COMPLICATIO NS: NonePMHx -PAST MEDICAL HISTORYDiagnosis Date- MigrainesCOMORBIDITIES - NonePost Op Occurrences - NoneWound Classification - Clean ContaminatedOperative note dictated in the [facility] dictation system.Edmund Escobar MDEncounter Status:Closed by EDUMND ESCOBAR MD on 04/01/18Encounter Number: [id number] [facility] CNOVon 01-18-2018 CNOV Office Visit (GENSWS) DAVIDFELICIANO Humphries ([id number]) 1965 FDate Time Provider Department01/18/18 1:30 PM LEO BARLOW (PA) During your visit today, we recorded the following information about you: Pulse Blood pressure Weight Height 68/minute 132/72 62.2 kg 1.626 Patrice Barlow PA-C 01/23/2018 3:28 PM SignedHISTORY AND PHYSICALElizajax [facility]1965REFERRING PHYSICIAN: SelfCHIEF COMPLAINT: Consult (Consult Colonoscopy)HPI: The patient is a 52 year old female referred for endoscopy. Ginettenotes no history of colon complaints. She denies any change in bowel habits,weight changes, blood in stools, black tarry stools or abdominal pain. Shedenies any family history of colon cancer in a first-degree relative. Thepatient notes no history of upper GI complaints. Ginette has partiallyundergone prior endoscopy.Patient's past medical history is significant for migraines. She denies anycardiac or respiratory problems, and denies any issues with sedation in thepast.PAST MEDICAL HISTORYDiagnosis Date- MigrainesPAST SURGICAL HISTORYProcedure Laterality Date- HYSTERECTOMY 2013 with Rt oophorectomyNo current outpatient prescriptions on file.No current facility-administered medications for this visit.ALLERGIES: Patient has no known allergies.PERSONAL HISTORY: Social History Marital status: Spouse name: Years of education: Number of children:Social History Main Topics Smoking status: Never Smoker Smokeless tobacco: Never Used Alcohol use: Yes Comment: 1/ year Drug use: NoFAMILY HISTORY:FAMILY HISTORYProblem Relation Age of Onset- Breast Cancer Mother- Hypertension Mother- Cancer Maternal Grandmother pancreatic vs colon ca- Coronary Artery Disease Maternal Grandfather- Prostate Cancer Paternal Grandfather- Breast Cancer Maternal Aunt [id number] OF SYMPTOMS: The review of systems data was entered by the nurse and reviewed by Shanon are no exam notes on file for this visit.PHYSICAL EXAMINATION:General: The patient is 52 year old female, well nourished, well hydrated inno acute distress. The patient is oriented to time, place, and person.VITALS: Blood pressure 132/72, pulse 68, height 162.6 cm (5' 4), weight 62.2kg (137 lb 3.2 oz). Body mass index is 23.55 kg/m?.HEENT: Normal cephalic, ataumatic, pupils are equally round, sclera areanicteric, mucous membranes are moist, oropharynx is clear. Neck has nomasses, asymmetry or lymphadenopathy.Respirat ory: Clear to auscultation and percussion. Normal respiratoryexcursion and pattern.Cardiac: Examination is regular rate and rhythm.Abdominal exam: Soft, nontender, with no palpable masses. Nohepatosplenomegaly. No palpable hernias.Rectal exam: exam deferredExtremities: no clubbing, cyanosis or edema. No adenopathy.Other:LABORAT ORY VALUES: As NotedRADIOLOGIC STUDIES: As NotedAssessmentIMPRESSIO N: encounter for screening colonoscopyPLAN: We will plan for screening colonoscopy, [facility] and [facility]. Wediscussed the risks and benefits of the planned endoscopy. I have informed thepatient that complications can occur including failure to complete theendoscopy and perforation. The patient had the opportunity to ask questionsconcerning the planned endoscopy. My staff has also explained the procedure tothe patient in understandable terms and has given the patient printed materialconcerning the procedure. The patient freely consents to surgery.I plan to use golytely bowel preparation for endoscopyDiagnoses: (Z12.11) Encounter for screening for malignant neoplasm of colon(primary encounter diagnosis)My findings have been communicated to Dr. Meek via shared medical record. Thisnote will be forwarded to Dr. Bhavik Pineda MD.Return to Clinic: The patient is instructed to follow-up with me 1 week postoperatively. [facility] Meeks-CReferring Provider: SUNITA [[id number]]Allergies As of Date: 01/18/2018(No Known Allergies)Date Reviewed: 01/18/2018Reviewed by: Leo Barlow (Pa) - Fully AssessedReason for Visit: Consult [173] Cmt: Consult ColonoscopyPrimary Visit Diagnosis:Encounter for screening for malignant neoplasm of colon [Z12.11]Problem List As Of Date: 01/18/2018(None)Follow-u p and Disposition History RecordedEncounter Number: [id number] Status:Closed by LEO BARLOW PA-C on 01/23/[address] [facility] PROGRESSon 01-18-2018 Protein mass conc HNO ID: [id number]: Leo (Cuco) Samervice: (none)Author Type: Physician AssistantType: Progress NotesFiled: 01/23/2018 3:28 PMNote Text:HISTORY AND PHYSICALElizabeth Fin1965REFERRING PHYSICIAN: SelfCHIEF COMPLAINT: Consult (Consult Colonoscopy)HPI: The patient is a 52 year old female referred for endoscopy.Ginette notes no history of colon complaints. She denies any change inbowel habits, weight changes, blood in stools, black tarry stools orabdominal pain. She denies any family history of colon cancer in afirst-degree relative. The patient notes no history of upper GIcomplaints. Ginette has partially undergone prior endoscopy.Patient's past medical history is significant for migraines. She deniesany cardiac or respiratory problems, and denies any issues with sedationin the past.PAST MEDICAL HISTORYDiagnosis Date- MigrainesPAST SURGICAL HISTORYProcedure Laterality Date- HYSTERECTOMY 2013 with Rt oophorectomyNo current outpatient prescriptions on file.No current facility-administered medications for this visit.ALLERGIES: Patient has no known allergies.PERSONAL HISTORY: Social History Marital status: Spouse name: Years of education: Number of children:Social History Main Topics Smoking status: Never Smoker Smokeless tobacco: Never Used Alcohol use: Yes Comment: 1/ year Drug use: NoFAMILY HISTORY:FAMILY HISTORYProblem Relation Age of Onset- Breast Cancer Mother- Hypertension Mother- Cancer Maternal Grandmother pancreatic vs colon ca- Coronary Artery Disease Maternal Grandfather- Prostate Cancer Paternal Grandfather- Breast Cancer Maternal Aunt [id number] OF SYMPTOMS: The review of systems data was entered by the nurse and reviewed by meThere are no exam notes on file for this visit.PHYSICAL EXAMINATION:General: The patient is 52 year old female, well nourished, well hydratedin no acute distress. The patient is oriented to time, place, and person.VITALS: Blood pressure 132/72, pulse 68, height 162.6 cm (5' 4), rxrpir23.2 kg (137 lb 3.2 oz). Body mass index is 23.55 kg/m?.HEENT: Normal cephalic, ataumatic, pupils are equally round, sclera areanicteric, mucous membranes are moist, oropharynx is clear. Neck has nomasses, asymmetry or lymphadenopathy.Respirat ory: Clear to auscultation and percussion. Normal respiratoryexcursion and pattern.Cardiac: Examination is regular rate and rhythm.Abdominal exam: Soft, nontender, with no palpable masses. Nohepatosplenomegaly. No palpable hernias.Rectal exam: exam deferredExtremities: no clubbing, cyanosis or edema. No adenopathy.Other:LABORAT ORY VALUES: As NotedRADIOLOGIC STUDIES: As NotedAssessmentIMPRESSIO N: encounter for screening colonoscopyPLAN: We will plan for screening colonoscopy, patient wishes to have thisdone at [facility] as [facility] works [facility] and has [employer]. We discussed the risks and benefits of the planned endoscopy.I have informed the patient that complications can occur including failureto complete the endoscopy and perforation. The patient had theopportunity to ask questions concerning the planned endoscopy. My staffhas also explained the procedure to the patient in understandable termsand has given the patient printed material concerning the procedure. Thepatient freely consents to surgery.I plan to use golytely bowel preparation for endoscopyDiagnoses: (Z12.11) Encounter for screening for malignant neoplasm ofcolon (primary encounter diagnosis)My findings have been communicated to Dr. Meek via shared medical record.This note will be forwarded to Dr. Bhavik Pineda MD.Return to Clinic: The patient is instructed to follow-up with me 1 weekpost operatively. Leo Barlow PA-C Normal [facility] Vital Signs Date Time Vital Sign Value Performing Clinician Asad collins 10-04-2024 02:32-0400 Body height 162.[address] Oriana Savage DO Work Phone: [facility] 10-04-2024 02:32-0400 Body mass index (BMI) [Ratio] 23 kg/m2 Dr. Oriana Savage DO Work Phone: [facility] 10-04-2024 02:32-0400 Body temperature 98.5 [degF] Dr. Oriana Savage DO Work Phone: [facility] 10-04-2024 02:32-0400 Body weight 60.[address] Oriana Savage DO Work Phone: [facility] 10-04-2024 02:32-0400 Diastolic blood pressure 60 mm[Hg] Dr. Oriana Savage DO Work Phone: [facility] 10-04-2024 02:32-0400 Heart rate 75 /min Dr. Oriana Savage DO Work Phone: [facility] 10-04-2024 02:32-0400 Respiratory rate 14 /min Dr. Oriana Savage DO Work Phone: [facility] 10-04-2024 02:32-0400 SaO2% (BldA) [Mass fraction] 99 % Dr. Oriana Savage DO Work Phone: [facility] 10-04-2024 02:32-0400 Systolic blood pressure 122 mm[Hg] Dr. Oriana Savage DO Work Phone: [facility] Encounters Encounter Date Encounter Type Care Provider Facility Start: 12-20-2024 ambulatory Health Risk Assessment Facility:[facility] Start: 11-20-[address] [facility] Start: 11-18-[address] Pankaj Rubio MD -Laboratory Work Phone: Start: 11-18-2024 ambulatory Oriana Savage Facility:[facility] Start: 11-15-2024 End: 11-15-[address] Oriana Savage DO Work Phone: -Outpatient Breast Imaging Start: 11-15-2024 End: 11-15-[address] Oriana Savage DO -Outpatient Breast Imaging Work Phone: Start: 11-15-2024 End: 11-15-2024 ambulatory Oriana Savage Facility:[facility] Start: 10-04-2024 End: 10-04-2024 Departed Referred Manuel Barrera DO -ED Referred Work Phone: Start: 10-04-2024 End: 10-04-2024 Emergency department patient visit Dr. Oriana Savage DO Work Phone: -Emergency Department Work Phone: Start: 10-04-2024 End: 10-04-2024 ambulatory Oriana Savage Facility:[facility] Start: 11-04-2021 End: 11-04-2021 Patient encounter procedure [facility]-Outpatient Breast Imaging Start: 01-18-2018 End: 01-23-2018 Patient encounter procedure LEO BARLOW (PA) [facility] [place] Procedures Date Procedure Procedure Detail Performing Clinician Start: 11-18-[address] Oriana berg DO Work Phone: Comment on above: Test Ordered: [id number] HIV Ab/p24 Ag with ReflexHIV Ab/p24 Ag Screen Note: CB Non Reactive Reference Range: Non ReactiveHIV-1/HIV-2 antibodies and HIV-1 p24 antigen were NOTdetected. There is no laboratory evidence of HIV infection.HIV NegativePerformed at: [facility] [id number] Director: Solomon Gresham PhD, Phone: [phone] Test Ordered: [id number] HCV Antibody RFX to Quant PCRHCV Ab Note: CB Non Reactive Reference Range: Non ReactiveInterpretation: Comment CB Reference Range: .Not infected with HCV unless early or acute infection issuspected (which may be delayed in an immunocompromisedindividual), or other evidence exists to indicate HCVinfection.Performed at: [facility] [id number] Director: Solomon Gresham PhD, Phone: [phone] Start: 11-15-2024 Screening mammography Malcolm Savage DO Work Phone: Start: 10-04-[address] Oriana Savage DO Work Phone: Start: 10-04-2024 Hepatitis C antibody measurement Dr. Oriana Savage DO Work Phone: Comment on above: Reactive: Presumptiv e evidence of antibodies to HCV. Follow CDC recommendations for supplemental testing.Non-Reactive: Antibodies to HCV were not detected; does not exclude the possibility of exposure to HCVReactive Results are presumptive evidence of antibodies to HCV. Follow CDC recommendations for supplemental testing.Order confirmation testing: HCV Quant by PCR testing - HCVPCR #[id number] Non Reactive: < 0.8 Equivocal: >/= 0.8 to < 1.0 Reactive: >/= 1.0The CDC requires that a reactive/equivocal HCV antibody result be sent out for confirmation. HCV Quant by PCR testing. Start: 11-04-2021 Screening mammography Plan of Treatment Date Care Activity Detail Author Start: 10-04-2024 Hepatitis C antibody measurement [facility] Start: 10-04-2024 End: 10-04-2024 [facility] Anion gap in Serum o r Plasma [facility] BUN/Creatinine ratio [facility] Calcium [Mass/volume ] in Serum or Plasma [facility] Carbon dioxide, tota l [Moles/volume] in Central venous blood [facility] Creatinine [Mass/vol ume] in Serum or Plasma [facility] Glucose [Mass/volume ] in Serum or Plasma [facility] Hepatitis B virus escalante rface Ab [Presence] in Serum [facility] Hepatitis B virus escalante rface Ag [Presence] in Serum [facility] Measurement of renal function [facility] Patient Education ED NEEDLE ST[facility] K Health Care Worker [facility] Work Phone: Patient referral [facility] Work Phone: Potassium measurement [facility] Serum chloride measurement [facility] Sodium measurement [facility] Urea nitrogen [Mass/volume] in Serum or Plasma [facility] Immunizations Immunization Date Immunization Notes Care Provider Fa tracy 03-19-2021 influenza, injectabl e, quadrivalent, preservative free Dr. Oriana Savage DO Work Phone: [facility] 03-19-2021 influenza, seasonal, injectable [facility] Work Phone: 02-27-2020 influenza, injectabl e, quadrivalent, preservative free Dr. Oriana Savage DO Work Phone: [facility] [facility] 02-27-2020 influenza, seasonal, injectable [facility] Work Phone: 03-28-2019 measles, mumps and rubella virus vaccine [facility] 03-19-2019 influenza, injectabl e, quadrivalent, preservative free Dr. Oriana Savage DO Work Phone: [facility] 03-19-2019 influenza, seasonal, injectable [facility] Work Phone: 02-18-2019 measles, mumps and rubella virus vaccine [facility] 02-23-2018 influenza, injectabl e, quadrivalent, preservative free Dr. Oriana Savage DO Work Phone: [facility] 02-23-2018 influenza, seasonal, injectable [facility] Work Phone: 03-02-2017 influenza, injectabl e, quadrivalent, preservative free Dr. Oriana Savage DO Work Phone: [facility] 03-02-2017 influenza, seasonal, injectable [facility] Work Phone: 03-11-2016 influenza, injectabl e, quadrivalent, preservative free Dr. Oriana Savage DO Work Phone: [facility] 03-11-2016 influenza, seasonal, injectable [facility] Work Phone: 02-26-2014 influenza, injectabl e, quadrivalent, preservative free Dr. Oriana Savage DO Work Phone: [facility] 02-26-2014 influenza, seasonal, injectable [facility] Work Phone: 03-28-2013 Influenza virus vaccine [facility] Payers Date Payer Category Payer Self-pay [id number] 2024 Unknown [id number] Unknown [id number] Unknown [id number] [id number] [id number] Unknown [id number] [id number] Unknown [id number] [id number] [id number] Social History Date Type Detail Facility Start: 03-22-2018 Tobacco smoking stat [facility] Unknown if ever smoked [facility] Work Phone: Start: 03-22-2018 [facility]sm[facility] Start: 1965 Sex Assigned At Female [facility] Start: 10-04-2024 Tobacco smoking stat [facility] Never smoked tobacco (finding) [facility] Mental Status Date Assessment Result Facility 10-04-2024 Cognitive function Level Of Cons ciousness Awake;Alert;Appropriate [facility] Work Phone: Evaluation note Note Date & Type Note Facility Evaluation note No assessment information availa ble [facility] Work Phone: Reason for referral (narrative) Note Date & Type Note Facility Reason for referral (narrative) No reason for referral information available [facility] Work Phone: Summary Purpose Family History No Family History Records FoundNo Family History Records Found Advance Directives No Advanced Directives Records Found Advance Directive Response Recorded Date/ Time Living Will Yes March 22 2:33pm Power of Rn Supplemental Yes March 22, 2018 2:33pm Advance Directive Response Recorded Date/ Time Do you have a Healthcare Power of Rn Supplemental? Yes October 04, 2024 2:32am Chief Complaint and Reason for Visit Chief Complaint SCREENING Chief Complaint Admit Date exposure October 04, 2024 2:32am Chief Complaint Admit Date exposure October 04, 2024 2:32am SCREENING November 15, 2024 2:26 pm EXPOSURE FOLLOW UP November 18, 2024 7:30 am Additional Source Comments INFORMATION SOURCE (unrecogn ized section and content) DATE CREATED AUTHOR 05/06/[address] [facility] DATE CREATED AUTHOR AUTHOR'S ORGANIZ ATION 12/22/2024 [facility] Goals (unrecognized section and content) Goals may be documented in a n alternate sectionGoals may be documented in an alternate sectionGoals may be documented in an alternate section Care Teams (unrecognized sec tion and content) Team Status: Active Member Role Status Dates Dr. Oriana Savage DO Primary Care Provider Active Team Status: Inactive Member Role Status Dates Dr. Oriana Savage DO Primary Care Provider Active Start: October 04, 2024 End: October 04, 2024 Dr. Manuel Barrera DO Emergency Provider Active Start: October 04, 2024 End: October 04, 2024 Team Status: Active Member Role/Relationship Status Dates Dr. Oriana Savage DO Primary Care Provider Active Team Status: Inactive Member Role/Relationship Status Dates Dr. Oriana Savage DO Primary Care Provider Active Start: October 04, 2024 End: October 04, 2024 Dr. Manuel Barrera DO Attending Provider Active Start: October 04, 2024 End: October 04, 2024 Team Status: Inactive Member Role/Relationship Status Dates Dr. Oriana Savage DO Primary Care Provider Active Start: November 15, 2024 End: November 15, 2024 Dr. Oriana Savage DO Attending Provider Active St art: November 15, 2024 End: November 15, 2024 Dr. Oriana Savage DO Referring Provider Active St art: November 15, 2024 End: November 15, 2024 Team Status: Active Member Role/Relationship Status Dates Dr. Oriana Savage DO Primary Care Provider Active Start: November 18, 2024 Dr. Pankaj Rubio MD Attending Provider Active Start: November 18, 2024 Dr. Pankaj Rubio MD Referring Provider Active Start: November 18, 2024 FOR RECORDS PERTAINING TO PATIENTS WHO ARE OR HAVE BEEN ENROLLED IN A CHEMICAL DEPENDENCY/SUBSTANCEABUSE PROGRAM, SOME INFORMATION MAY BE OMITTED. This clinical summary was aggregated from multiple sources. Caution should be exercised in using it in the provision of clinical care. This summary normalizes information from multiple sources, and as a consequence, information in this document may materially change the coding, format and clinical context of patient data. In addition, data may be omitted in some cases. CLINICAL DECISIONS SHOULD BE BASED ON THE PRIMARY CLINICAL RECORDS. [employer] provides no warranty or guarantee of the accuracy or completeness of information in this document.
[2024-12-26 12:09] LABS: Age Gdln ACOG Testing 30-65 (.); HPV APTIMA, High Risk Negative (Negative)
== END | disposition home or self-care (01) ==
LOC: LABSPEC 12-24 09:01
PROVIDERS: PCP Family Medicine; Visit Provider Family Medicine
DX: Z12.4 Encounter for screening for malignant neoplasm of cervix (principal)
CPT/HCPCS: 87624; 88175; G0145